=== PATIENT | female | born 1950 | race Caucasian/White ===

== ENCOUNTER 2025-05-27 13:01 | Inpatient (IN) | payer MEDICARE, OTHER ==
[~2025-05-27] VITALS: Ht 170.2 cm; Wt 79.8 kg
--- NOTE | 2025-05-27 13:24 | ED.PDOC ---
GI ASSESSMENT HPI Comments HPI: Poor Historian. 75-year-old male brought in by ambulance from home for evaluation of upper abdominal pain 1 hour prior to arrival associated nausea and vomiting nonbilious nonbloody. Patient has a normal bowel movement loose stool but no diarrhea. Denies any melena hematemesis or hematochezia.. Pain is constant nonradiating. Denies eating any unusual food. Past Medical History: Breast cancer, hyperlipidemia Past Surgical History: Partial mastectomy, hysterectomy, partial thyroidectomy. REVIEW OF SYSTEMS: CONSTITUTIONAL: Denies acute: fever, diaphoresis, chills, HEAD: Denies acute: headache, photophobia Eyes: Denies acute: Double vision, vision loss, eye pain, eye discharge. EARS: Denies acute: tinnitus, hearing loss, ear discharge, ear pain, THROAT: Denies acute: sore throat, swelling, difficulty swallowing , pain with swallowing, change in voice. NECK: Denies acute: neck pain, neck swelling, stiff neck. HEART: Denies acute : chest pain, palpitations, LUNGS: Denies acute: SOB, wheezing, cough, hemoptysis ABDOMEN: Denies acute: , diarrhea, melena , hematemesis, hematochezia SKIN: Denies acute: rash, redness, lesions, itchiness. EXTREMITIES: Denies acute: calf pain, numbness, tingling, weakness, denies pain in extremity. Denies acute: Low back pain. Neuro: Denies acute: focal neurological deficit, motor or sensory focal neurological deficit, tremors, seizure like activity, confusion, dizziness, change in mental status, loss of bowel or bladder function, cauda equina like symptoms. : Denies acute: dysuria, hematuria, flank pain, increase in urinary frequency. PSYCH: Denies acute: hallucination, suicidal ideation, homicidal ideation. FEMALE: Denies acute: abnormal vaginal bleeding, foul odor, unusual discharge. PHYSICAL EXAM: General: -----moderate---acute distress, awake and alert. Head: normocephalic, atraumatic. Neck: supple, trachea is midline, no swelling. Throat: Normal phonation. Eyes:, no erythema, no purulent discharge, no proptosis, no icterus. Heart: regular rate, regular rhythm, no significant murmur appreciated. Lungs: no apparent respiratory distress, Able to speak in full sentences. No wheezing, no rhonchi, no crackles. No stridors Clear to auscultation bilaterally. Abdomen: Right upper quadrant tender to palpation, non distended, soft, no guarding, no rebound, + bowel sounds. Neuro: Awake, Alert, oriented to name, self, situation, follows commands GCS=15. Speech is normal. Skin: no petechia, no purpura, no cyanosis, non-pale, not jaundice. Lower extremities: --no - Pitting edema no deformity, no focal swelling, no calf TTP. Makes eye contact. moves all four extremities. Face: no apparent facial droop. ED COURSE: DISCLAIMER: This medical document was created using an electronic medical record system with voice recognition software and computerized dictation system. Although this document has been carefully reviewed, there might still be some phonetic and typographical errors. Occasional wrong-word or "sound-alike" substitutions may have occurred due to the inherent limitations of voice recognition software. These areas are purely typographical due to imperfections of the software programs and do not reflect any compromise in the patient's medical care. Please read the chart carefully and recognize, using context, where these substitutions have occurred. Chief Complaint: Abdominal Pain Time Seen by MD: 13:05 Reviewed Notes: Allergies Allergies: Coded Allergies: Hydrocodone (Verified Allergy, Unknown, 05/27/25) Hydrocortisone (Verified Allergy, Unknown, 05/27/25) NSAIDs (Verified Allergy, Unknown, 05/27/25) Povidone Iodine (Verified Allergy, Unknown, 05/27/25) Sulfa Antibiotics (Verified Allergy, Unknown, 05/27/25) Home Meds Reported Medications Simvastatin (Simvastatin) 20 Mg Tab, 1 TAB PO 05/27/25 Information Source: Patient, Emergency Med Personnel Mode of Arrival: Ambulatory Was a procedure done? Was a procedure done?: No GI differential Dx Differential Diagnosis: Other (DDX include Diverticulitis, colitis, gastroenteritis, acute abdomen, SBO, enteritis, constipation, volvulus, appendicitis, Gallbladder disease, choledocolithiasis, ascending cholangitis, pancreatitis, intraAbdominal mass/neoplasm, hepatitis, UTI, pylonephritis, kidney stone, aneurysm, dissection, Inflammatory bowel disease, gastroparesis, ischemic bowel,,,,, ) X-Ray, Labs, Meds, VS Vital Signs Date Time Temp Pulse Resp B/P (MAP) Pulse Ox O2 Delivery O2 Flow Rate FiO2 05/27/25 15:04 74 17 96 Room Air* 0 21 05/27/25 14:56 129/61 05/27/25 14:54 97.7 58 16 129/61 (83) 98 97.7 05/27/25 13:10 97.9 64 20 129/67 100 97.9 Lab Test 05/27/25 15:20 05/27/25 14:11 Range/Units Troponin I High Sensitivity < 3 L < 3 L </=34 ng/L White Blood Count 11.8 H 4.4-10.8 10^3/uL Red Blood Count 4.46 4.0-5.20 10^6/uL Hemoglobin 14.0 12.2-16.2 g/dL Hematocrit 41.0 36.0-46.0 % Mean Corpuscular Volume 91.9 80.0-100.0 fL Mean Corpuscular Hemoglobin 31.3 28.0-32.0 pg Mean Corpuscular Hemoglobin Concent 34.1 32.0-36.0 g/dL Red Cell Distribution Width 13.0 11.8-14.3 % Platelet Count 169 140-450 10^3/uL Mean Platelet Volume 8.9 6.9-10.8 fL Neutrophils (%) (Auto) 88.1 H 37.0-80.0 % Lymphocytes (%) (Auto) 7.4 L 10.0-50.0 % Monocytes (%) (Auto) 4.2 0.0-12.0 % Eosinophils (%) (Auto) 0.0 0.0-7.0 % Basophils (%) (Auto) 0.3 0.0-2.0 % Neutrophils # (Auto) 10.4 H 1.6-8.6 10 ^3/uL Lymphocytes # (Auto) 0.9 0.4-5.4 10 ^3/uL Monocytes # (Auto) 0.5 0-1.3 10 ^3/uL Eosinophils # (Auto) 0 0-0.8 10 ^3/uL Basophils # (Auto) 0 0-0.2 10 ^3/uL Nucleated Red Blood Cells 0.0 % Prothrombin Time 10.9 9.3-11.8 sec Prothrombin Time INR 1.03 0.9-1.15 Activated Partial Thromboplast Time 24.8 24.5-34.5 SEC Sodium Level 141 136-145 mmol/L Potassium Level 3.8 3.5-5.1 mmol/L Chloride Level 104 98-107 mmol/L Carbon Dioxide Level 23 20-31 mmol/L Anion Gap 14 5-15 Blood Urea Nitrogen 22 9-23 mg/dL Creatinine 0.63 0.550-1.02 mg/dL Glomerular Filtration Rate Calc 93 >90 mL/min BUN/Creatinine Ratio 34.9 H 10.0-20.0 Serum Glucose 166 H 74-106 mg/dL Lactic Acid Level 3.7 *H 0.4-2.0 mmol/L Calcium Level 9.4 8.7-10.4 mg/dL Total Bilirubin 0.7 0.2-1.0 mg/dL Aspartate Amino Transferase (AST) 29 13-40 U/L Alanine Aminotransferase (ALT) 26 7-40 U/L Alkaline Phosphatase 77 46-116 U/L Total Protein 6.9 5.7-8.2 g/dL Albumin 4.5 3.2-4.8 g/dL Lipase 44 12-53 U/L Current Medications Medications (Trade) Dose Ordered Sig/Preet Route Start Time Stop Time Status Last Admin Fentanyl Citrate 100 mcg ONCE ONCE IV 05/27/25 14:15 05/27/25 14:16 DC 05/27/25 14:56 Ondansetron HCl (Zofran) 4 mg ONCE ONCE IV 05/27/25 15:00 05/27/25 15:01 DC 05/27/25 14:53 [place] [id number] Ph: [phone] DIAGNOSTIC IMAGING Diagnostic Imaging Report : [id number] Signed PATIENT: ALESSANDRO PACHECO ACCT: [id number] UNIT: [id number] : 1950 LOC: ER ROOM / BED: / AGE / SEX: 75 / F ADM STATUS: REG ER SERVICE 1310 ORDERING PHYSICIAN: LUIS ALFREDO DAILEY DO PROCEDURE(s): ABPL - CT AB PEL WO CON-NO ORAL OR IV REASON: RUQ pain ORDER NUMBER(s): [id number], ACCESSION NUMBER(s): [id number] EXAM DESCRIPTION: CT CT AB PEL WO CON-NO ORAL OR IV CLINICAL HISTORY: RUQ pain COMPARISON: None TECHNIQUE: CT abdomen and pelvis without IV contrast was performed. Coronal and sagittal MPR images were generated.CTDI/ DLP = 11.11 / 11.11 Dose reduction technique with one or more of the following methods was performed: Automated exposure control, adjustment of the mA and/or kV according to patient size, use of iterative reconstruction technique FINDINGS: Lower chest: Aortic valve leaflet calcifications. Liver: Homogenous in attenuation. . Biliary: No calcified gallstones. No biliary ductal dilatation. Pancreas: No fat stranding or focal lesion. Spleen: Normal in size.. Adrenal glands: No nodularity. No nodularity Kidneys: No nephrolithiasis. No hydroureteronephrosis. . Bladder: No bladder wall thickening. Reproductive organs: Status post hysterectomy. Bowel: There are multiple mildly dilated loops of small bowel in the lower abdomen with multiple apparent transition points. The large bowel demonstrates normal caliber. Colonic diverticulosis without evidence of diverticulitis. Normal appendix.. Small hiatal hernia. Peritoneum: No free fluid. No free air. Vessels: Normal caliber abdominal aorta. Mild to moderate atherosclerotic calcifications.. Lymph nodes: No suspicious lymph nodes. Soft tissues: Asymmetric soft tissue nodularity of the left breast with calcifications and clips. . Osseous structures: No acute fracture or subluxation. No suspicious osseous le sions. Degenerative changes of the visualized thoracolumbar spine. IMPRESSION: 1. Multiple mildly dilated loops of small bowel in the lower abdomen with multiple apparent transition points. These findings are suspicious for multi- focal closed-loop small bowel obstruction. Recommend surgical consultation. 2. Asymmetric soft tissue nodularity in the left breast with calcifications and metallic clips. Recommend correlation with mammography Critical findings discussed with Dr. Luis Alfredo Dailey by Dr. Naylor via phone on 05/27/2025 02:00 PM. ATED BY: TYLER NAYLOR MD DICTATED DATE/TIME: 05/27/251400 SIGNED BY: TYLER NAYLOR MD SIGNED DATE/TIME: 05/27/251400 CC: Time of 1ST Reevaluation: 00:00 Reevaluation 1ST: N/A Patient Education/Counseling: Diagnosis, Treatment Family Education/Counseling: Other Comments MDM: patient presented with the above HPI.---abdominal pain---workup was initiated. patient was found with the above mentioned diagnosis. the following medications were ordered: please refer to order lists of meds and tests obtained by myself Dr. Dailey. Patient ED course and VS have been stabilized. Patient has been reassessed in the ED and remained in a stable condition. Pertinent incidental findings were discussed with the patient and/or family. Patient/family voices understanding and is agreeable with plan. Patient has been observed in the ED adequate length of time to insure improvement/stability. Escalation of care considered: Consideration of escalation to observation or admission General surgery was consult. Patient was ADMITTED to the medicine team for further evaluation and treatment of their presentation. All the reports of any imaging studies that were ordered by myself were reviewed by myself. Departure 1 Departure Time of Disposition: 14:05 Impression: Primary Impression: SBO (small bowel obstruction) Additional Impression: Elevated lactic acid level Disposition: ADMITTED INPATIENT Admit to: Tele Condition: Guarded Discharged With: Self Critical Care Note Critical Care Time?: Yes (55 min-critical care time only) Heart Score Heart Score: Heart Score Response (Comments) Value History Slightly Suspicious 0 EKG Normal 0 Age >65 2 Risk Factors 1 or 2 risk factors 1 Troponin Normal limit 0 Total 3 I personally scribed for LUIS ALFREDO DAILEY DO ([email or web address]) on 05/27/25 at 13:53. Electronically submitted by Gracie Chappell ([email or web address]). I personally scribed for LUIS ALFREDO DAILEY DO ([email or web address]) on 05/27/25 at 14:39. Electronically submitted by Gracie Chappell ([email or web address]). LUIS ALFREDO DAILEY DO May 27, 2025 13:24
--- NOTE | 2025-05-27 14:04 | DVH ---
EXAM DESCRIPTION: CT CT AB PEL WO CON-NO ORAL OR IV CLINICAL HISTORY: RUQ pain COMPARISON: None TECHNIQUE: CT abdomen and pelvis without IV contrast was performed. Coronal and sagittal MPR images were generat ed.CTDI/ DLP = 11.11 / 11.11 Dose reduction technique with one or more of the following methods was performed: Automated exposure control, adjustment of the mA and/or kV according to patient size, use of iterative reconstruction te chnique FINDINGS: Lower chest: Aortic valve leaflet calcifications. Liver: Homogenous in attenuation. . Biliary: No calcified gallstones. No biliary ductal dilatation. Pancreas: No fat stranding or focal lesion. Spleen: Normal in size.. Adrenal glands: No nodularity. No nodularity Kidneys: No nephrolithiasis. No hydroureteronephrosis. . Bladder: No bladder wall thickening. Reproductive organs: Status post hysterectomy. Bowel: There are multiple mildly dilated loops of small bowel in the lower abdomen with multiple appa rent transition points. The large bowel demonstrates normal caliber. Colonic diverticulosis without e vidence of diverticulitis. Normal appendix.. Small hiatal hernia. Peritoneum: No free fluid. No free air. Vessels: Normal caliber abdominal aorta. Mild to moderate atherosclerotic calcifications.. Lymph nodes: No suspicious lymph nodes. Soft tissues: Asymmetric soft tissue nodularity of the left breast with calcifications and clips. . Osseous structures: No acute fracture or subluxation. No suspicious osseous lesions. Degenerative c hanges of the visualized thoracolumbar spine. IMPRESSION: 1. Multiple mildly dilated loops of small bowel in the lower abdomen with multiple apparent transitio n points. These findings are suspicious for multi-focal closed-loop small bowel obstruction. Recomm end surgical consultation. 2. Asymmetric soft tissue nodularity in the left breast with calcifications and metallic clips. Recom mend correlation with mammography Critical findings discussed with Dr. Luis Alfredo Boss by Dr. Finley via phone on 05/27/2025 02:00 PM.
[2025-05-27 14:29] LABS: Hematocrit 41.0 % (36.0-46.0); Hemoglobin 14.0 g/dL (12.2-16.2); Mean Corpuscular Hemoglobin 31.3 pg (28.0-32.0); Mean Corpuscular Volume 91.9 fL (80.0-100.0); Nucleated Red Blood Cells % 0.0 %
[2025-05-27 14:40] LABS: Alanine Aminotransferase 26 U/L (7-40); Albumin 4.5 g/dL (3.2-4.8); Alkaline Phosphatase 77 U/L (46-116); Anion Gap 14 (5-15); BUN/Creatinine Ratio 34.9 (10.0-20.0); Bilirubin, Total 0.7 mg/dL (0.2-1.0); Blood Urea Nitrogen 22 mg/dL (9-23); Calcium 9.4 mg/dL (8.7-10.4); Carbon Dioxide 23 mmol/L (20-31); Chloride 104 mmol/L (98-107); Glucose 166 mg/dL (74-106); Lipase 44 U/L (12-53); Potassium 3.8 mmol/L (3.5-5.1); Sodium 141 mmol/L (136-145); Total Protein 6.9 g/dL (5.7-8.2)
[2025-05-27 14:44] LABS: Lactic Acid w/Reflex 3.7 mmol/L (0.4-2.0)
[2025-05-27] MEDS: ONDANSETRON HCL 4 MG/2 ML VIAL IV ONE (14:53)
[2025-05-27] MEDS: fentaNYL CITRATE 100 MCG/2 ML VL IV ONE (14:56)
[2025-05-27] MEDS: ONDANSETRON HCL 4 MG/2 ML VIAL ONE (15:02)
[2025-05-27 15:04] VITALS: PULSE 74; RESP 17; O2SAT 96
[2025-05-27 16:06] VITALS: PULSE 60; RESP 17; O2SAT 95
--- NOTE | 2025-05-27 16:08 | DVH ---
CHEST RADIOGRAPH Indication: surgery Technique: Single frontal view of the chest was obtained COMPARISON: None FINDINGS: Lines and Tubes: None Lungs: Clear Pleura: No effusion. No pneumothorax. Cardiomediastinal contours: Unremarkable Bones: Unremarkable IMPRESSION: No acute disease.
--- NOTE | 2025-05-27 16:10 | DVHHP2 ---
History of Present Illness Reason for Visit: Abdominal pain with nausea and vomiting History of Present Illness Sejal Chin is a 75-year-old female with past medical history of breast cancer, partial mastectomy, hyperlipidemia, hysterectomy, duodenal ulcer, and partial thyroidectomy who presents to the ED with abdominal pain with nausea and vomiting that started yesterday. Patient reports that the cramping started yesterday states that the pain is currently 7/10 cramping and constant. She reports that there are no triggering or alleviating factors. Patient's Adam at the bedside. Patient reports that she had a normal bowel movement yesterday with brown stool color. Denies any hematochezia, melena, or hematemesis. Patient also reports that she is compliant with her medications. She reports that she does not use any DMEs. Patient denies any recent trauma or injury, recent sick contacts, recent travels, recent ingestion of spoiled food, chest pain, shortness of breath, fever, chills, lightheadedness, weakness, dizziness, diarrhea, or urinary symptoms. Patient reports that she has never had morphine or Dilaudid for pain. Cardiovascular: hyperipidemia Past Medical History Breast cancer Duodenal ulcer Past Surgical History: Hysterectomy, Other (Partial mastectomy and partial thyroidectomy) Family History: Cancer, DM, Hypertension, Other (Dad with colon cancer, diab etes, and heart disease. Mom with scoliosis and hypertension.) Smoke: No ALCOHOL: none Drugs: None Lives: with Family Domestic Violence: Neg Review of Systems Gastrointestinal: Nausea, Vomiting, Abdominal Pain Allergies: Coded Allergies: Hydrocodone (Verified Allergy, Unknown, 05/27/25) Hydrocortisone (Verified Allergy, Unknown, 05/27/25) NSAIDs (Verified Allergy, Unknown, 05/27/25) Povidone Iodine (Verified Allergy, Unknown, 05/27/25) Sulfa Antibiotics (Verified Allergy, Unknown, 05/27/25) Exam Vital Signs Vital Signs Date Time Temp Pulse Resp B/P (MAP) Pulse Ox O2 Delivery O2 Flow Rate FiO2 05/27/25 15:04 74 17 96 Room Air* 0 21 05/27/25 14:56 129/61 05/27/25 14:54 97.7 97.7 General Appearance: Alert, Oriented X3, Cooperative, No acute distress HEENT: Atraumatic, PERRLA, EOMI, Mucous membr. moist/pink Respiratory: Clear to auscultation, Normal air movement Cardiovascular: Normal S1, Normal S2 Abdominal: Soft Extremities: No edema, Normal pulses Skin: No significant lesion Neuro: Normal speech, Normal tone, Sensation intact Psych/Mental Status: Mental status NL, Mood NL Labs/Xrays Labs Test 05/27/25 15:20 05/27/25 14:11 Range/Units Troponin I High Sensitivity < 3 L </=34 ng/L White Blood Count 11.8 H 4.4-10.8 10^3/uL Red Blood Count 4.46 4.0-5.20 10^6/uL Hemoglobin 14.0 12.2-16.2 g/dL Hematocrit 41.0 36.0-46.0 % Mean Corpuscular Volume 91.9 80.0-100.0 fL Mean Corpuscular Hemoglobin 31.3 28.0-32.0 pg Mean Corpuscular Hemoglobin Concent 34.1 32.0-36.0 g/dL Red Cell Distribution Width 13.0 11.8-14.3 % Platelet Count 169 140-450 10^3/uL Mean Platelet Volume 8.9 6.9-10.8 fL Neutrophils (%) (Auto) 88.1 H 37.0-80.0 % Lymphocytes (%) (Auto) 7.4 L 10.0-50.0 % Monocytes (%) (Auto) 4.2 0.0-12.0 % Eosinophils (%) (Auto) 0.0 0.0-7.0 % Basophils (%) (Auto) 0.3 0.0-2.0 % Neutrophils # (Auto) 10.4 H 1.6-8.6 10 ^3/uL Lymphocytes # (Auto) 0.9 0.4-5.4 10 ^3/uL Monocytes # (Auto) 0.5 0-1.3 10 ^3/uL Eosinophils # (Auto) 0 0-0.8 10 ^3/uL Basophils # (Auto) 0 0-0.2 10 ^3/uL Nucleated Red Blood Cells 0.0 % Sodium Level 141 136-145 mmol/L Potassium Level 3.8 3.5-5.1 mmol/L Chloride Level 104 98-107 mmol/L Carbon Dioxide Level 23 20-31 mmol/L Anion Gap 14 5-15 Blood Urea Nitrogen 22 9-23 mg/dL Creatinine 0.63 0.550-1.02 mg/dL Glomerular Filtration Rate Calc 93 >90 mL/min BUN/Creatinine Ratio 34.9 H 10.0-20.0 Serum Glucose 166 H 74-106 mg/dL Lactic Acid Level 3.7 *H 0.4-2.0 mmol/L Calcium Level 9.4 8.7-10.4 mg/dL Total Bilirubin 0.7 0.2-1.0 mg/dL Aspartate Amino Transferase (AST) 29 13-40 U/L Alanine Aminotransferase (ALT) 26 7-40 U/L Alkaline Phosphatase 77 46-116 U/L Total Protein 6.9 5.7-8.2 g/dL Albumin 4.5 3.2-4.8 g/dL Lipase 44 12-53 U/L EXAM DESCRIPTION: CT CT AB PEL WO CON-NO ORAL OR IV CLINICAL HISTORY: RUQ pain COMPARISON: None TECHNIQUE: CT abdomen and pelvis without IV contrast was performed. Coronal and sagittal MPR images were generated.CTDI/ DLP = 11.11 / 11.11 Dose reduction technique with one or more of the following methods was performed: Automated exposure control, adjustment of the mA and/or kV according to patient size, use of iterative reconstruction technique FINDINGS: Lower chest: Aortic valve leaflet calcifications. Liver: Homogenous in attenuation. . Biliary: No calcified gallstones. No biliary ductal dilatation. Pancreas: No fat stranding or focal lesion. Spleen: Normal in size.. Adrenal glands: No nodularity. No nodularity Kidneys: No nephrolithiasis. No hydroureteronephrosis. . Bladder: No bladder wall thickening. Reproductive organs: Status post hysterectomy. Bowel: There are multiple mildly dilated loops of small bowel in the lower abdomen with multiple apparent transition points. The large bowel demonstrates normal caliber. Colonic diverticulosis without evidence of diverticulitis. Normal appendix.. Small hiatal hernia. Peritoneum: No free fluid. No free air. Vessels: Normal caliber abdominal aorta. Mild to moderate atherosclerotic calcifications.. Lymph nodes: No suspicious lymph nodes. Soft tissues: Asymmetric soft tissue nodularity of the left breast with calcifications and clips. . Osseous structures: No acute fracture or subluxation. No suspicious osseous lesions. Degenerative changes of the visualized thoracolumbar spine. IMPRESSION: 1. Multiple mildly dilated loops of small bowel in the lower abdomen with multiple apparent transition points. These findings are suspicious for multi- focal closed-loop small bowel obstruction. Recommend surgical consultation. 2. Asymmetric soft tissue nodularity in the left breast with calcifications and metallic clips. Recommend correlation with mammography CHEST RADIOGRAPH Indication: surgery Technique: Single frontal view of the chest was obtained COMPARISON: None FINDINGS: Lines and Tubes: None Lungs: Clear Pleura: No effusion. No pneumothorax. Cardiomediastinal contours: Unremarkable Bones: Unremarkable IMPRESSION: No acute disease. SEPSIS Sepsis Screen Date sepsis recognized/suspect: May 27, 2025 Time Sepsis recognized/suspect: 1313 Recent Procedure: No On Antibiotic Therapy: No Respiratory Rate >20: No Heart Rate >90: No Temp<36 C (96.8 F) or >38.3 C: No SBP <90 or MAP <65 mmHG: No New Acute Mental Status Change: No Is the patient on CPAP, BIPAP,: No Physician Orders Planning Consultant (05/27/25 ) Urinalysis (05/27/25 13:10) Electrocardigram (05/27/25 13:10) Ct Ab Pel Wo Con-No Oral Or Iv (05/27/25 13:10) Troponin-I Hs (05/27/25 16:10) * Surgical Consult (05/27/25 ) Obtain Consent For: (05/27/25 15:18) Ng To Lcs (05/27/25 15:28) Chest Xray 1 View (05/27/25 15:34) Electrocardigram (05/27/25 15:34) PTPTT (05/27/25 15:51) Prothrombin Time W/ Inr (05/27/25 15:51) Vital Signs Date Time Temp Pulse Resp B/P (MAP) Pulse Ox O2 Delivery O2 Flow Rate FiO2 05/27/25 15:04 74 17 96 Room Air* 0 21 05/27/25 14:56 129/61 05/27/25 14:54 97.7 58 16 129/61 (83) 98 97.7 05/27/25 13:10 97.9 64 20 129/67 100 97.9 Laboratory Tests Test 05/27/25 14:11 Lactic Acid Level 3.7 mmol/L (0.4-2.0) *H White Blood Count 11.8 10^3/uL (4.4-10.8) H Medications Medications Dose Ordered Sig/Preet Route Start Time Stop Time Status Last Admin Dose Admin Fentanyl Citrate 100 mcg ONCE ONCE IV 05/27/25 14:15 05/27/25 14:16 DC 05/27/25 14:56 100 MCG Ondansetron HCl 4 mg ONCE ONCE IV 05/27/25 15:00 05/27/25 15:01 DC 05/27/25 14:53 4 MG Assessment/Plan Assessment/Plan Assessment Intractable abdominal pain likely due to SBO Leukocytosis likely due to SBO Lactic acidosis likely sepsis Multiple mildly dilated loops of small bowel in the lower abdomen with multiple apparent transition points likely due to SBO Asymmetric soft tissue nodularity in the left breast with calcifications and metallic clips Hyperglycemia History of breast cancer History of partial mastectomy History of hyperlipidemia History of hysterectomy History of partial thyroidectomy History of duodenal ulcer Plan Admit to med surge Antiemetics Pain management IV antibiotics-Zosyn Lactic noted Troponin noted negative x2 Hemoglobin A1c ISS and Accu-Cheks PT/INR Chest x-ray NG tube to low continuous suction CT abdomen and pelvis UA Lipase Blood cultures UA Urine culture NPO IV fluids Home medications reconciled DVT prophylaxis-SCDs PUD prophylaxis-PPIs Discussed plan of care with patient, patient's spouse, and nurse General surgery [place] [id number] Preventive counseling healthy eating habits, physical activity, and regular checkups Rounding hospitalist to consider patient for mammography outpatient Plan discussed with: Patient Date of Service: May 27, 2025 Billing Provider: NESTOR FERRARA Common Visit Codes: [id number] INP/OBS CARE (HIGH) Secondary Visit Codes: [id number] COUNSELING IND NESTOR FERRARA May 27, 2025 16:10
[2025-05-27] MEDS ORDERED: ACETAMINOPHEN 325 MG TAB PO PRN (16:15)
[2025-05-27] MEDS ORDERED: ONDANSETRON HCL 4 MG/2 ML VIAL IV PRN ×2 (16:15→19:30)
[2025-05-27] MEDS: SODIUM CHLORIDE 0.9% 1,900 ML IV ONE (16:15)
[2025-05-27] MEDS ORDERED: HYDROmorphone HCL 2 MG/ML VL/or syr ONE (16:24)
[2025-05-27] MEDS ORDERED: fentaNYL CITRATE 100 MCG/2 ML VL ONE (16:24)
[2025-05-27] MEDS ORDERED: MIDAZOLAM HCL 2MG/2ML 2ml VIAL (1mg/ml) ONE (16:24)
[2025-05-27 16:26] LABS: INR 1.03 (0.9-1.15); Partial Thromboplastin Time 24.8 SEC (24.5-34.5); Prothrombin Time 10.9 sec (9.3-11.8)
[2025-05-27] MEDS ORDERED: SIMV20TA20 PO (17:06)
--- NOTE | 2025-05-27 17:30 | DVH ---
CHEST RADIOGRAPH Indication: POST NG INSERTION Technique: XY CHEST PORTABLE Comparison: 05/27/2020 FINDINGS: The nasogastric tube projects towards the stomach. The cardiac silhouette is unremarkable. The lungs demonstrate no pulmonary airspace consolidation. Th e pulmonary vasculature is unremarkable. There is no pleural effusion. There is no pneumothorax. IMPRESSION: No pulmonary airspace consolidation.
[2025-05-27] MEDS ORDERED: ONDANSETRON HCL 4 MG/2 ML VIAL ONE (18:05)
--- NOTE | 2025-05-27 18:08 | DVHINCON2 ---
Consultation - Surgical Date Seen: May 27, 2025 Referring Physician Reason for Consultation Possible closed loop small bowel obstruction History of Present Illness History of Present Illness Mrs. Chin is a 75-year-old female who presented to the emergency department with sudden onset mid abdominal pain, associated with nausea and vomiting. Patient was feeling fine this morning and was going about her day when all of a sudden the pain hit her at home and has not subsided. She has never had this type of pain before. States that she had a bowel movement this morning and it was liquidy. Denies fevers, chills, changes in urinary or stooling habits. States that she has not passed gas since the pain started. Past Medical/Surgical History Past Medical/Surgical History PMH thyroid goiter, breast cancer on the left PSH hysterectomy open, left breast lumpectomy, partial thyroidectomy Family and Social History Family and Social History Family history noncontributory ETOH/T Ob/drugs denies Allergies and medications Allergies: Coded Allergies: Hydrocodone (Verified Allergy, Unknown, 05/27/25) Hydrocortisone (Verified Allergy, Unknown, 05/27/25) NSAIDs (Verified Allergy, Unknown, 05/27/25) Povidone Iodine (Verified Allergy, Unknown, 05/27/25) Sulfa Antibiotics (Verified Allergy, Unknown, 05/27/25) Home Meds Reported Medications Simvastatin (Simvastatin) 20 Mg Tab, 1 TAB PO 05/27/25 Review of systems Review of Systems: Deferred Examination Vital signs Vital Signs Date Time Temp Pulse Resp B/P (MAP) Pulse Ox O2 Delivery O2 Flow Rate FiO2 05/27/25 16:06 60 17 148/60 (89) 95 05/27/25 15:04 Room Air* 0 21 05/27/25 14:54 97.7 97.7 Medications Current Medications Medications (Trade) Dose Ordered Sig/Preet Route PRN Reason Start Time Stop Time Status Last Admin Sodium Chloride 1,000 ml @ 120 mls/hr Q8H20M IV 05/27/25 16:15 Ondansetron HCl (Zofran) 4 mg Q4HP PRN IV NAUSEA / VOMITING 05/27/25 16:15 Acetaminophen (Tylenol Tablet) 650 mg Q6HP PRN PO PAIN SCALE 1-3 OR TEMP>100.4 05/27/25 16:15 Piperacillin Sod/ Tazobactam Sod 100 ml @ 25 mls/hr Q8HR IV 05/27/25 16:15 Atorvastatin Calcium (Lipitor) 10 mg HS PO 05/27/25 22:00 Laboratory Labs Test 05/27/25 16:45 05/27/25 15:20 05/27/25 14:11 Range/Units Lactic Acid Level 2.5 *H 0.4-2.0 mmol/L Troponin I High Sensitivity < 3 L </=34 ng/L White Blood Count 11.8 H 4.4-10.8 10^3/uL Red Blood Count 4.46 4.0-5.20 10^6/uL Hemoglobin 14.0 12.2-16.2 g/dL Hematocrit 41.0 36.0-46.0 % Mean Corpuscular Volume 91.9 80.0-100.0 fL Mean Corpuscular Hemoglobin 31.3 28.0-32.0 pg Mean Corpuscular Hemoglobin Concent 34.1 32.0-36.0 g/dL Red Cell Distribution Width 13.0 11.8-14.3 % Platelet Count 169 140-450 10^3/uL Mean Platelet Volume 8.9 6.9-10.8 fL Neutrophils (%) (Auto) 88.1 H 37.0-80.0 % Lymphocytes (%) (Auto) 7.4 L 10.0-50.0 % Monocytes (%) (Auto) 4.2 0.0-12.0 % Eosinophils (%) (Auto) 0.0 0.0-7.0 % Basophils (%) (Auto) 0.3 0.0-2.0 % Neutrophils # (Auto) 10.4 H 1.6-8.6 10 ^3/uL Lymphocytes # (Auto) 0.9 0.4-5.4 10 ^3/uL Monocytes # (Auto) 0.5 0-1.3 10 ^3/uL Eosinophils # (Auto) 0 0-0.8 10 ^3/uL Basophils # (Auto) 0 0-0.2 10 ^3/uL Nucleated Red Blood Cells 0.0 % Prothrombin Time 10.9 9.3-11.8 sec Prothrombin Time INR 1.03 0.9-1.15 Activated Partial Thromboplast Time 24.8 24.5-34.5 SEC Sodium Level 141 136-145 mmol/L Potassium Level 3.8 3.5-5.1 mmol/L Chloride Level 104 98-107 mmol/L Carbon Dioxide Level 23 20-31 mmol/L Anion Gap 14 5-15 Blood Urea Nitrogen 22 9-23 mg/dL Creatinine 0.63 0.550-1.02 mg/dL Glomerular Filtration Rate Calc 93 >90 mL/min BUN/Creatinine Ratio 34.9 H 10.0-20.0 Serum Glucose 166 H 74-106 mg/dL Calcium Level 9.4 8.7-10.4 mg/dL Total Bilirubin 0.7 0.2-1.0 mg/dL Aspartate Amino Transferase (AST) 29 13-40 U/L Alanine Aminotransferase (ALT) 26 7-40 U/L Alkaline Phosphatase 77 46-116 U/L Total Protein 6.9 5.7-8.2 g/dL Albumin 4.5 3.2-4.8 g/dL Lipase 44 12-53 U/L Examination: GENERAL:Normal, ABDOMEN:Normal (Nondistended, soft, depressible, mild generalized abdominal tenderness, no rebound, no guarding) Problem List/Assessment/Plan Problems: (1) SBO (small bowel obstruction) Assessment and Plan Mrs. Chin is a 75-year-old female who presented with the acute onset abdominal pain. CT scan shows swirling of small bowel loops in the right lower quadrant and multiple areas of decompressed small bowel loops, which she is concerning for closed loop obstruction and possible small bowel compromise due to the swirling. She also presented with a lactate of 3.7. Due to the CT findings high lactate and generalized abdominal pain I think patient will benefit from a diagnostic laparoscopy, to be able to see if there is any compromise or threat and small bowel. I offered diagnostic laparoscopy copy, possible exploratory laparotomy, possible bowel resection, and all indicated procedures, to and . They both agree with surgical plan. 1. On-call to OR for the above procedure 2. NPO 3. NG tube to low intermittent suctioned Plan discussed with Plan discussed with: Patient, Spouse Visit Coding Surgery Date of Service if different f: May 27, 2025 Billing Provider: KRISHNA PACKER MD Surgery Visit Codes: [id number] - INP CONSULT <110 MIN KRISHNA PACKER MD May 27, 2025 18:08
[2025-05-27] MEDS: BUPIVACAINE 0.25% INJ 50ML VIAL ONE (18:33)
[2025-05-27] MEDS ORDERED: MIDAZOLAM HCL 2MG/2ML 2ml VIAL (1mg/ml) IV PRN (19:30)
[2025-05-27] MEDS ORDERED: hydrALAZINE HCL 20 MG/ML VL IV PRN (19:30)
[2025-05-27] MEDS ORDERED: MORPHINE SULFATE 4 MG/ML SYR/VIAL IV PRN (19:30)
[2025-05-27] MEDS ORDERED: SUGAMMADEX 200mg/2ml Vial (100MG/ML) IV ONE (20:25)
[2025-05-27 21:05] VITALS: PULSE 90; RESP 16; O2SAT 95
--- NOTE | 2025-05-27 21:14 | DVHOP2 ---
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 These include but are not limited to complications of anesthesia, postoperative infection, incomplete relief of symptoms, recurrence of symptoms, damage to blood vessels, nerves and tendons, deep venous thrombosis, pulmonary embolism and possible need for repeat surgery in the future. 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 Hemorrhagic and congested segments of jejunum with proximal dilation and distal decompression. Omental adhesions to anterior abdominal wall. Many adhesive bands between cecum and lateral abdominal wall. Indications for Surgery: Closed loop small bowel obstruction seen on CT scan. Name of Procedure Performed Diagnostic laparoscopy converted to exploratory laparotomy, lysis of adhesions, appendectomy Procedure Details Procedure Details: Upon arrival to the operating room the patient was transferred to the operating table and placed in the supine position with arms extended. General endotracheal anesthesia was induced. Time-out was observed. Patient was prepped and draped in the standard sterile surgical fashion with chlorhexidine. I then proceeded to make a infraumbilical curvilinear incision and dissected down to fascia once at the fascia I grasped the umbilical stalk with a Camilla clamp and walked it down to its base, once at the base treat to the peritoneal cavity utilizing Cesilia technique. I then introduced the Rico cannula and insufflated the peritoneal cavity to 15 mmHg with toleration. I then inserted the camera and immediately noted omental adhesions to the anterior abdominal wall. I then placed 2 additional working ports under direct vision, 5 mm in si ze at the suprapubic area and at the left lower quadrant. Patient was then placed in the Trendelenburg position right side up, attention was then turned to the right lower quadrant. Here I noted dilated, hemorrhagic, and congested small bowel loops and some decompressed loops. I then proceeded to identified the cecum and the terminal ileum. I then started tracing the terminal ileum and as I made my way proximal I encountered the hemorrhagic congestive loops of small bowel. They appeared to be twisted around its mesentery. The small bowel loops were untwisted, but I then noted that there were some adhesions in the right lower quadrant. At this point was when I noted that the appendix was adhesed tightly to the right lateral pelvic wall and this caused an internal hernia with a small-bowel in it. I then proceeded to take down the appendix adhesions to the abdominal wall and immediately the small bowel became free. At this point I attempted to run the entire small bowel from terminal ileum to ligament of Treitz. As I did this I still felt that there was something else holding the small bowel into the retroperitoneum of the right lower quadrant, and I was not able to decipher what it was. At this point I decided to convert to a open surgery. I then extended the infraumbilical incision, down to the suprapubic area. I dissected down to fascia and I carefully incised the fascia the length of the incision and was able to gain access to the peritoneal cavity. I then was able to fully exteriorize the small bowel. The congested loops of bowel were completely free and out of the peritoneal cavity. At this point the loops of small bowel were regaining their normal appearance, and they were peristalsing, so I decided not to perform a small-bowel resection. I then proceeded to run the entire small bowel from ligament of Treitz to terminal ileum no further adhesive bands or other pathology noted. Given that the appendix was the cause of the issue, I decided to perform an appendectomy. I made a mesenteric rent at the base of the appendix and ligated the base with 2, 0 silk ties. I then placed 1 0 silk tie distal about half a cm. I then transected the appendix. I then transected the mesoappendix with ligature energy device. Appendix was passed off for pathology. This concluded the intraperitoneal portion of the surgery. I then closed the fascia with running #1 Loop PDS x2, tied at the center. Hemostasis stasis of the subcu was achieved with cautery. All counts complete and correct. Skin was closed with angelique at all sites. Marcaine 0.25% was used as local anesthetic. All sites dressed with a 4 x 4 gauze and Tegaderm. Patient tolerated the procedure well and was transferred to PACU in stable condition. Specimen: Appendix Condition Stable Disposition Still a Patient CADEN PACKER MD May 27, 2025 21:14
[2025-05-27 21:15] VITALS: PULSE 84; RESP 12; O2SAT 96
[2025-05-27] MEDS: HYDROmorphone HCL 2 MG/ML VL/or syr ONE (21:28)
[2025-05-27] MEDS: HYDROmorphone HCL 2 MG/ML VL/or syr IV PRN (21:28)
[2025-05-27] MEDS: ATORVASTATIN 20 MG TAB PO SCH (22:00)
[2025-05-27] MEDS ORDERED: HYDROmorphone HCL 2 MG/ML VL/or syr IV PRN (22:15)
[2025-05-27 22:24] VITALS: BP 137/67; PULSE 92; RESP 17; RESP 94; TEMP 98.3; O2SAT 94
[2025-05-27] MEDS: SODIUM CHLORIDE 0.9% 1,000 ML IV SCH (22:54)
[2025-05-27] MEDS: PIPERACILLIN-TAZOB 3.375GM 100 ML IV SCH (22:57)
[2025-05-27 23:06] VITALS: BP 137/67; PULSE 87; RESP 17; TEMP 98.3; O2SAT 94
--- NOTE | 2025-05-27 23:07 | DVH ---
CHEST RADIOGRAPH Indication: CONFIRM REPLACED NGT. Technique: Single frontal view of the chest was obtained COMPARISON: XY CHEST PORTABLE on DOS: 05/27/25, XY CHEST XRAY 1 VIEW on DOS: 05/27/25 FINDINGS: Lines and Tubes: Enteric catheter courses below the level of the diaphragm and terminates beyond the inferior margin of the image, presumably within the gastric lumen. Lungs: Mild diffuse increased prominence of the pulmonary vasculature and mild bilateral perihilar an d bibasilar pulmonary airspace disease. Pleura: No effusion. No pneumothorax. Cardiomediastinal contours: Unremarkable Bones: Unremarkable IMPRESSION: 1. Enteric catheter courses below the level of the diaphragm and terminates beyond the inferior alicia n of the image, presumably within the gastric lumen. 2. Mild diffuse increased prominence of the pulmonary vasculature and mild Bilateral perihilar Bibasi lar pulmonary airspace disease.
[2025-05-28] VITALS (8 sets, daily range): BP systolic 115–155; BP diastolic 37–75; PULSE 66–92; RESP 16–18; TEMP 97.3–98.4; O2SAT 93–97
[2025-05-28 07:34] LABS: Hematocrit 41.1 % (36.0-46.0); Hemoglobin 14.1 g/dL (12.2-16.2); Mean Corpuscular Hemoglobin 31.7 pg (28.0-32.0); Mean Corpuscular Volume 92.7 fL (80.0-100.0); Nucleated Red Blood Cells % 0.1 %
[2025-05-28 07:41] LABS: Alanine Aminotransferase 21 U/L (7-40); Alkaline Phosphatase 62 U/L (46-116); Anion Gap 10 (5-15); BUN/Creatinine Ratio 16.7 (10.0-20.0); Blood Urea Nitrogen 10 mg/dL (9-23); Calcium 8.9 mg/dL (8.7-10.4); Carbon Dioxide 28 mmol/L (20-31); Chloride 103 mmol/L (98-107); Potassium 4.6 mmol/L (3.5-5.1); Sodium 141 mmol/L (136-145); Total Protein 6.6 g/dL (5.7-8.2)
[2025-05-28 07:42] LABS: Albumin 4.2 g/dL (3.2-4.8); Bilirubin, Total 0.7 mg/dL (0.2-1.0); Glucose 146 mg/dL (74-106)
[2025-05-28] MEDS ORDERED: MORPHINE SULFATE 4 MG/ML SYR/VIAL IV PRN (13:30)
--- NOTE | 2025-05-28 13:31 | DVHPN2 ---
Reviewed: Care Plan, H&P, Labs, Medications, Previous Orders, Radiology Changes from previous H/P or p: No Changes Gastrointestinal: Nausea, Vomiting, Abdominal Pain Objective Vitals Vital Signs Date Time Temp Pulse Resp B/P (MAP) Pulse Ox O2 Delivery O2 Flow Rate FiO2 05/28/25 09:00 98.3 82 18 130/37 (68) 93 98.3 05/27/25 22:24 Nasal Cannula* 4 36 Intake/Output Intake and Output 05/28/25 07:00 Intake Total 100 ml Output Total 450 ml Balance -350 ml Intake Oral 0 ml IV Total 100 ml Output Urine Total 450 ml Medications Current Medications Medications Dose Ordered Sig/Preet Route Start Time Stop Time Status Last Admin Dose Admin Sodium Chloride 1,000 ml @ 120 mls/hr Q8H20M IV 05/27/25 16:15 05/28/25 08:55 120 MLS/HR Ondansetron HCl 4 mg Q4HP PRN IV 05/27/25 16:15 Acetaminophen 650 mg Q6HP PRN PO 05/27/25 16:15 Piperacillin Sod/ Tazobactam Sod 100 ml @ 25 mls/hr Q8HR IV 05/27/25 16:15 05/28/25 13:21 25 MLS/HR Atorvastatin Calcium 10 mg HS PO 05/27/25 22:00 Morphine Sulfate 2 mg Q4HPRN PRN IV 05/28/25 13:30 Laboratory Results Laboratory Tests 05/28/25 05:10 Chemistry Test 05/27/25 14:11 05/28/25 05:10 Albumin 4.5 g/dL (3.2-4.8) 4.2 g/dL (3.2-4.8) Calcium Level 9.4 mg/dL (8.7-10.4) 8.9 mg/dL (8.7-10.4) Total Protein 6.9 g/dL (5.7-8.2) 6.6 g/dL (5.7-8.2) Coagulation Test 05/27/25 14:11 Prothrombin Time 10.9 sec (9.3-11.8) Prothrombin Time INR 1.03 (0.9-1.15) Activated Partial Thromboplast Time 24.8 SEC (24.5-34.5) Lipid panel Test 05/27/25 14:11 Lipase 44 U/L (12-53) LFT Test 05/27/25 14:11 05/28/25 05:10 Alanine Aminotransferase (ALT) 26 U/L (7-40) 21 U/L (7-40) Alkaline Phosphatase 77 U/L (46-116) 62 U/L (46-116) Aspartate Amino Transferase (AST) 29 U/L (13-40) 32 U/L (13-40) Total Bilirubin 0.7 mg/dL (0.2-1.0) 0.7 mg/dL (0.2-1.0) Labs and/or images reviewed: Labs reviewed by me, Image(s) reviewed by me Assessment/Plan Assessment/Plan Sepsis secondary to acute appendicitis status post diagnostic laparoscopy converted to exploratory laparotomy lysis of adhesions and appendectomy by surgeon Dr. Gannon, continue Zosyn, morphine for the pain Intractable abdominal pain likely due to acute appendicitis Multiple mildly dilated loops of small bowel in the lower abdomen with multiple apparent transition points likely due to SBO Asymmetric soft tissue nodularity in the left breast with calcifications and metallic clips Hyperglycemia History of breast cancer History of partial mastectomy History of hyperlipidemia History of hysterectomy History of partial thyroidectomy History of duodenal ulcer Time spent 70 minutes Advanced care planning time 20 minutes Patient is full code DEMARCO Navarro at bedside Plan discussed with: Patient My Orders Orders - NORMA HICKMAN MD Procedure Category Date Status Time Morphine Sulfate PHA 05/28/25 In Process Injection 13:30 Date of Service: May 28, 2025 Billing Provider: NORMA HICKMAN MD Common Visit Codes: [id number] CARE 30-74 MIN NORMA HICKMAN MD May 28, 2025 13:31
[2025-05-28] MEDS ORDERED: ROCURONIUM 10MG/ML 10ML VIAL IV ONE (14:53)
[2025-05-28] MEDS: KETOROLAC TROMETH 30 MG/ML 1ML VIAL IV PRN (15:13)
[2025-05-28] MEDS: FLEET ENEMA(ADULT) 135 ML PR ONE (16:09)
[2025-05-28] MEDS: LACTATED RINGER'S 1,000 ML IV SCH (17:42)
--- NOTE | 2025-05-28 22:41 | DVHPN2 ---
Progress Note - Surgical Date Seen: May 28, 2025 Post op day Post op day: 1 Subjective Patient reports: No new complaints (Patient is feeling okay, although not really hungry, has a NG tube to low intermittent suctioned, not much coming out of the NG tube. Not passing gas) Review of Systems: Deferred Objective Vital signs Vital Sign Date Time Temp Pulse Resp B/P (MAP) Pulse Ox O2 Delivery O2 Flow Rate FiO2 05/28/25 17:00 98.3 77 18 128/68 (88) 94 98.3 05/28/25 08:00 Nasal Cannula* 4 36 Total Intake and Output 05/27/25 05/27/25 05/28/25 15:00 23:00 07:00 Intake Total 100 ml Output Total 450 ml Balance -350 ml Medications Current Medications Medications Dose Ordered Sig/Preet Route Start Time Stop Time Status Last Admin Dose Admin Ondansetron HCl 4 mg Q4HP PRN IV 05/27/25 16:15 Acetaminophen 650 mg Q6HP PRN PO 05/27/25 16:15 Piperacillin Sod/ Tazobactam Sod 100 ml @ 25 mls/hr Q8HR IV 05/27/25 16:15 05/28/25 22:03 25 MLS/HR Atorvastatin Calcium 10 mg HS PO 05/27/25 22:00 Morphine Sulfate 2 mg Q4HPRN PRN IV 05/28/25 13:30 Hold Ketorolac Tromethamine 30 mg Q6HPRN PRN IV 05/28/25 13:45 06/02/25 13:44 05/28/25 15:13 30 MG Lactated Ringer's 1,000 ml @ 150 mls/hr Q6H40M IV 05/28/25 13:45 05/28/25 17:42 150 MLS/HR Laboratory Laboratory Tests 05/28/25 05:10 Test 05/28/25 05:10 Range/Units Serum Glucose 146 H 74-106 mg/dL Microbiology Date/Time Source Procedure Growth Status 05/27/25 16:45 Blood Blood Culture - Preliminary NO GROWTH AFTER 24 HOURS OF INCUBATION. Resulted Examination: GENERAL:Normal, HEENT:Normal (NG tube with minimal output), ABDOMEN:Normal Labs and/or images reviewed: Labs reviewed by me (Leukocytosis 17 from 11 likely reactive to the surgery, hemoglobin stable at 14) Problem List/Assessment/Plan Problems: (1) Obstruction concurrent with and due to internal hernia of abdomen Assessment and Plan Mrs. Chin is a 75-year-old female who presented yesterday with small bowel obstruction due to internal hernia, she is currently postop day 1 from diagnostic laparoscopy converted to exploratory laparotomy, lysis of adhesions, and appendectomy. There was an adhesive band from the appendix to the lateral pelvic wall that caused the internal herniation small bowel, the affected small bowel was very congested hemorrhagic but still alive and peristalsing, no bowel resection was made. Patient today is feeling well although not really hungry, we will continue to monitor. 1. Continue NPO 2. NG tube to low intermittent suctioned 3. Out of bed and ambulate 4. A.m. labs, CBC and CMP 5. Recommended pain regimen: Tylenol 1000 mg p.o. every 6 hours, Toradol 15 mg IV every 8 hours x5 days, [place] 5 and 10 mg every 4 hours prn moderate and severe pain My Orders My Orders Orders - KRISHNA PACKER MD Procedure Category Date Status Time Complete Blood Count LAB 05/29/25 Verified 04:00 Comprehensive LAB 05/29/25 Verified Metabolic Panel 04:00 Plan discussed with Plan discussed with: Patient, Spouse Visit Coding Surgery Date of Service if different f: May 28, 2025 Billing Provider: KRISHNA PACKER MD Surgery Visit Codes: [id number] INP/OBS CARE(HIGH) KRISHNA PACKER MD May 28, 2025 22:41
[2025-05-29] VITALS (8 sets, daily range): BP systolic 104–147; BP diastolic 52–77; PULSE 74–86; RESP 14–18; TEMP 97.9–98.8; O2SAT 91–98
[2025-05-29 07:17] LABS: Alanine Aminotransferase 20 U/L (7-40); Albumin 3.5 g/dL (3.2-4.8); Alkaline Phosphatase 54 U/L (46-116); Anion Gap 13 (5-15); BUN/Creatinine Ratio 20.9 (10.0-20.0); Bilirubin, Total 0.8 mg/dL (0.2-1.0); Blood Urea Nitrogen 14 mg/dL (9-23); Carbon Dioxide 28 mmol/L (20-31); Chloride 106 mmol/L (98-107); Glucose 96 mg/dL (74-106); Potassium 3.8 mmol/L (3.5-5.1)
[2025-05-29 07:20] LABS: Calcium 8.5 mg/dL (8.7-10.4); Sodium 147 mmol/L (136-145); Total Protein 5.6 g/dL (5.7-8.2)
--- NOTE | 2025-05-29 08:46 | DVHPN2 ---
Reviewed: Care Plan, H&P, Labs, Medications, Previous Orders, Radiology Changes from previous H/P or p: No Changes Gastrointestinal: Nausea, Vomiting, Abdominal Pain Objective Vitals Vital Signs Date Time Temp Pulse Resp B/P (MAP) Pulse Ox O2 Delivery O2 Flow Rate FiO2 05/29/25 05:00 98.3 86 18 124/53 (76) 91 98.3 05/28/25 20:00 Nasal Cannula* 4 36 Intake/Output Intake and Output 05/29/25 07:00 Intake Total 1100 ml Output Total 625 ml Balance 475 ml Intake Oral 0 ml IV Total 350 ml Other 750 ml Output Urine Total 625 ml Medications Current Medications Medications Dose Ordered Sig/Preet Route Start Time Stop Time Status Last Admin Dose Admin Ondansetron HCl 4 mg Q4HP PRN IV 05/27/25 16:15 Acetaminophen 650 mg Q6HP PRN PO 05/27/25 16:15 Piperacillin Sod/ Tazobactam Sod 100 ml @ 25 mls/hr Q8HR IV 05/27/25 16:15 05/29/25 06:24 25 MLS/HR Atorvastatin Calcium 10 mg HS PO 05/27/25 22:00 Morphine Sulfate 2 mg Q4HPRN PRN IV 05/28/25 13:30 Hold Ketorolac Tromethamine 30 mg Q6HPRN PRN IV 05/28/25 13:45 06/02/25 13:44 05/28/25 15:13 30 MG Lactated Ringer's 1,000 ml @ 150 mls/hr Q6H40M IV 05/28/25 13:45 05/29/25 01:30 150 MLS/HR Laboratory Results Laboratory Tests 05/29/25 05:30 Chemistry Test 05/29/25 05:30 Albumin 3.5 g/dL (3.2-4.8) Calcium Level 8.5 mg/dL (8.7-10.4) L Total Protein 5.6 g/dL (5.7-8.2) L LFT Test 05/29/25 05:30 Alanine Aminotransferase (ALT) 20 U/L (7-40) Alkaline Phosphatase 54 U/L (46-116) Aspartate Amino Transferase (AST) 34 U/L (13-40) Total Bilirubin 0.8 mg/dL (0.2-1.0) Microbiology Microbiology Date/Time Source Procedure Growth Status 05/27/25 16:45 Blood Blood Culture - Preliminary NO GROWTH AFTER 24 HOURS OF INCUBATION. Resulted Labs and/or images reviewed: Labs reviewed by me, Image(s) reviewed by me Assessment/Plan Assessment/Plan Sepsis secondary to acute appendicitis status post diagnostic laparoscopy converted to exploratory laparotomy lysis of adhesions and appendectomy by surgeon Dr. Gannon, continue Zosyn, morphine for the pain Intractable abdominal pain likely due to acute appendicitis Multiple mildly dilated loops of small bowel in the lower abdomen with multiple apparent transition points likely due to SBO Hyperglycemia History of breast cancer status post partial mastectomy Hypercholesterolemia History of duodenal ulcer History of partial thyroidectomy NG tube clamped and liquid diet started per recommendation of surgeon Dr. Gannon GI prophylaxis: Pantoprazole Time spent 50 minutes Advanced care planning time 20 minutes Patient is full code DEMARCO Navarro at bedside Plan discussed with: Patient My Orders Orders - NORMA HICKMAN MD Procedure Category Date Status Time Morphine Sulfate PHA 05/28/25 In Process Injection 13:30 Ketorolac Injection PHA 05/28/25 In Process (Toradol Injection) 13:45 Lactated Ringer's PHA 05/28/25 In Process 13:45 Complete Blood Count LAB 05/30/25 Verified 04:00 Comprehensive LAB 05/30/25 Verified Metabolic Panel 04:00 Date of Service: May 29, 2025 Billing Provider: NORMA HICKMAN MD Common Visit Codes: [id number] INP/OBS CARE(HIGH) NORMA HICKMAN MD May 29, 2025 08:46
[2025-05-29] MEDS ORDERED: ACETAMINOPHEN 650 MG RECT SUPP PR PRN (09:00)
[2025-05-29] MEDS: PANTOPRAZOLE 40 MG/10 ML VIAL INJ IV SCH (09:35)
--- NOTE | 2025-05-29 09:56 | DVHPN2 ---
Progress Note - Surgical Date Seen: May 29, 2025 Post op day Post op day: 2 Subjective Patient reports: Feels better (Patient feeling better today, not aware if she is passing gas but has some rumbling in her stomach, she was able to walk yesterday, now much coming out of the NG tube.) Review of Systems: Deferred Objective Vital signs Vital Sign Date Time Temp Pulse Resp B/P (MAP) Pulse Ox O2 Delivery O2 Flow Rate FiO2 05/29/25 05:00 98.3 86 18 124/53 (76) 91 98.3 05/28/25 20:00 Nasal Cannula* 4 36 Total Intake and Output 05/28/25 05/28/25 05/29/25 15:00 23:00 07:00 Intake Total 1000 ml 100 ml Output Total 450 ml 175 ml Balance 550 ml -75 ml Medications Current Medications Medications Dose Ordered Sig/Preet Route Start Time Stop Time Status Last Admin Dose Admin Ondansetron HCl 4 mg Q4HP PRN IV 05/27/25 16:15 Acetaminophen 650 mg Q6HP PRN PO 05/27/25 16:15 Piperacillin Sod/ Tazobactam Sod 100 ml @ 25 mls/hr Q8HR IV 05/27/25 16:15 05/29/25 06:24 25 MLS/HR Atorvastatin Calcium 10 mg HS PO 05/27/25 22:00 Lactated Ringer's 1,000 ml @ 150 mls/hr Q6H40M IV 05/28/25 13:45 05/29/25 01:30 150 MLS/HR Acetaminophen 650 mg Q6HP PRN SC 05/29/25 09:00 Pantoprazole Sodium 40 mg BID IV 05/29/25 10:00 05/29/25 09:35 40 MG Laboratory Laboratory Tests 05/29/25 05:30 Test 05/29/25 05:30 Range/Units Serum Glucose 96 74-106 mg/dL Microbiology Date/Time Source Procedure Growth Status 05/27/25 16:45 Blood Blood Culture - Preliminary NO GROWTH AFTER 24 HOURS OF INCUBATION. Resulted Examination: GENERAL:Normal, ABDOMEN:Normal (Nondistended, soft, depressible, midline wound with angelique in place and no surrounding signs of infection, appropriate tenderness) Labs and/or images reviewed: Labs reviewed by me (CMP unremarkable, still pending CBC) Problem List/Assessment/Plan Assessment and Plan Mrs. Chin is a 75-year-old female who presented yesterday with small bowel obstruction due to internal hernia, she is currently postop day 2 from diagnostic laparoscopy converted to exploratory laparotomy, lysis of adhesions, and appendectomy. There was an adhesive band from the appendix to the lateral pelvic wall that caused the internal herniation small bowel, the affected small bowel was very congested hemorrhagic but still alive and peristalsing, no bowel resection was made. Interval: Patient feeling better, she will need to continue ambulating, I will clamp the NG tube and advance her to clear liquid diet. 1. Clear liquid diet and advance as tolerated 2. Clamp NG tube and give clears, if she gets advanced past clear liquids today please remove NG tube 3. Out of bed and ambulate 4. A.m. labs, CBC and CMP 5. Recommended pain regimen: Tylenol 1000 mg p.o. every 6 hours, Toradol 15 mg IV every 8 hours x5 days, [place] 5 and 10 mg every 4 hours prn moderate and severe pain 6. Abdominal binder for support 7. Incentive spirometry My Orders My Orders Orders - KRISHNA PACKER MD Procedure Category Date Status Time Complete Blood Count LAB 05/29/25 Logged 04:00 Communication Order ORDERS 05/29/25 Transmitted 09:49 Plan discussed with Plan discussed with: Patient Visit Coding Surgery Date of Service if different f: May 29, 2025 Billing Provider: KRISHNA PACKER MD Surgery Visit Codes: [id number] INP/OBS CARE(HIGH) KRISHNA PACKER MD May 29, 2025 09:55
[2025-05-29 10:27] LABS: Hematocrit 37.0 % (36.0-46.0); Hemoglobin 12.6 g/dL (12.2-16.2); Mean Corpuscular Hemoglobin 32.0 pg (28.0-32.0); Mean Corpuscular Volume 94.1 fL (80.0-100.0); Nucleated Red Blood Cells % 0.0 %
[2025-05-29] MEDS: diphenhydrAMINE HCL 50 MG/1 ML VL IM PRN (13:54)
[2025-05-30] VITALS (8 sets, daily range): BP systolic 116–132; BP diastolic 47–69; PULSE 80–89; RESP 15–20; TEMP 98.2–98.7; O2SAT 90–95
[2025-05-30 06:53] LABS: Hematocrit 40.3 % (36.0-46.0); Hemoglobin 13.4 g/dL (12.2-16.2); Mean Corpuscular Hemoglobin 31.5 pg (28.0-32.0); Mean Corpuscular Volume 94.3 fL (80.0-100.0); Nucleated Red Blood Cells % 0.1 %
--- NOTE | 2025-05-30 09:42 | DVHPN2 ---
Reviewed: Care Plan, H&P, Labs, Medications, Previous Orders, Radiology Changes from previous H/P or p: No Changes Gastrointestinal: Nausea, Vomiting, Abdominal Pain Objective Vitals Vital Signs Date Time Temp Pulse Resp B/P (MAP) Pulse Ox O2 Delivery O2 Flow Rate FiO2 05/30/25 05:00 98.2 84 17 116/59 (78) 90 98.2 05/29/25 20:00 Room Air* 0 21 Intake/Output Intake and Output 05/30/25 07:00 Intake Total 640 ml Balance 640 ml Intake Oral 540 ml IV Total 100 ml # Voids 5 # Bowel Movements 2 Medications Current Medications Medications Dose Ordered Sig/Preet Route Start Time Stop Time Status Last Admin Dose Admin Ondansetron HCl 4 mg Q4HP PRN IV 05/27/25 16:15 Acetaminophen 650 mg Q6HP PRN PO 05/27/25 16:15 Piperacillin Sod/ Tazobactam Sod 100 ml @ 25 mls/hr Q8HR IV 05/27/25 16:15 05/30/25 05:13 25 MLS/HR Atorvastatin Calcium 10 mg HS PO 05/27/25 22:00 05/29/25 22:06 10 MG Lactated Ringer's 1,000 ml @ 150 mls/hr Q6H40M IV 05/28/25 13:45 05/29/25 16:41 150 MLS/HR Acetaminophen 650 mg Q6HP PRN [place] 05/29/25 09:00 Pantoprazole Sodium 40 mg BID IV 05/29/25 10:00 05/29/25 22:06 40 MG Diphenhydramine HCl 25 mg Q8HPRN PRN IM 05/29/25 13:45 05/29/25 22:06 25 MG Laboratory Results Laboratory Tests 05/29/25 05:30 05/30/25 05:40 Microbiology Microbiology Date/Time Source Procedure Growth Status 05/27/25 16:45 Blood Blood Culture - Preliminary NO GROWTH AFTER 48 HOURS OF INCUBATION. Resulted Labs and/or images reviewed: Labs reviewed by me, Image(s) reviewed by me Assessment/Plan Assessment/Plan Sepsis secondary to acute appendicitis status post diagnostic laparoscopy converted to exploratory laparotomy lysis of adhesions and appendectomy by surgeon Dr. Gannon, continue Zosyn, morphine for the pain Intractable abdominal pain likely due to acute appendicitis Multiple mildly dilated loops of small bowel in the lower abdomen with multiple apparent transition points likely due to SBO Hyperglycemia History of breast cancer status post partial mastectomy Hypercholesterolemia History of duodenal ulcer History of partial thyroidectomy NG tube clamped and liquid diet started per recommendation of surgeon Dr. Gannon GI prophylaxis: Pantoprazole Allergic rash possibly allergic to Zosyn, DC Zosyn start Rocephin and Flagyl; start Benadryl New PCP recommended Dr Sarah Time spent 50 minutes Advanced care planning time 20 minutes Patient is full code DEMARCO Navarro at bedside Plan discussed with: Patient My Orders Orders - NORMA HICKMAN MD Procedure Category Date Status Time Clear Liq Diet DIET 05/29/25 Transmitted Lunch Discontinue Johnson [place] 05/29/25 In Process Catheter 09:48 Diphenhdramine PHA 05/29/25 In Process Injection (Benadryl 13:45 Date of Service: May 30, 2025 Billing Provider: NORMA HICKMAN MD Common Visit Codes: [id number] INP/OBS CARE(HIGH) NORMA HICKMAN MD May 30, 2025 09:42
[2025-05-30 11:52] LABS: Alanine Aminotransferase 14 U/L (7-40); Albumin 3.3 g/dL (3.2-4.8); Anion Gap 9 (5-15); BUN/Creatinine Ratio 19.1 (10.0-20.0); Blood Urea Nitrogen 13 mg/dL (9-23); Chloride 104 mmol/L (98-107); Sodium 144 mmol/L (136-145)
[2025-05-30 11:53] LABS: Bilirubin, Total 1.0 mg/dL (0.2-1.0)
[2025-05-30 11:55] LABS: Alkaline Phosphatase 46 U/L (46-116); Calcium 8.2 mg/dL (8.7-10.4); Carbon Dioxide 31 mmol/L (20-31); Glucose 126 mg/dL (74-106); Potassium 3.2 mmol/L (3.5-5.1); Total Protein 5.4 g/dL (5.7-8.2)
[2025-05-30] MEDS: diphenhydrAMINE HCL 50 MG/1 ML VL IV SCH (12:00)
--- NOTE | 2025-05-30 12:05 | DVHPN2 ---
Progress Note - Surgical Date Seen: May 30, 2025 Post op day Post op day: 3 Subjective Review of Systems: Not Done Objective Vital signs Vital Sign Date Time Temp Pulse Resp B/P (MAP) Pulse Ox O2 Delivery O2 Flow Rate FiO2 05/30/25 09:00 98.5 80 16 131/58 (82) 95 98.5 05/30/25 08:00 Room Air* 0 21 Total Intake and Output 05/29/25 05/29/25 05/30/25 15:00 23:00 07:00 Intake Total 340 ml 300 ml Balance 340 ml 300 ml Medications Current Medications Medications Dose Ordered Sig/Preet Route Start Time Stop Time Status Last Admin Dose Admin Ondansetron HCl 4 mg Q4HP PRN IV 05/27/25 16:15 Acetaminophen 650 mg Q6HP PRN PO 05/27/25 16:15 Atorvastatin Calcium 10 mg HS PO 05/27/25 22:00 05/29/25 22:06 10 MG Lactated Ringer's 1,000 ml @ 150 mls/hr Q6H40M IV 05/28/25 13:45 05/29/25 16:41 150 MLS/HR Acetaminophen 650 mg Q6HP PRN [place] 05/29/25 09:00 Pantoprazole Sodium 40 mg BID IV 05/29/25 10:00 05/30/25 09:44 40 MG Ceftriaxone Sodium 50 ml @ 100 mls/hr DAILY@09 IV 05/31/25 09:00 Metronidazole 100 ml @ 100 mls/hr Q8HR IV 05/30/25 14:00 Diphenhydramine HCl 25 mg Q6HR IV 05/30/25 12:00 Laboratory Laboratory Tests 05/30/25 05:40 Test 05/30/25 10:45 Range/Units Serum Glucose Pending Microbiology Date/Time Source Procedure Growth Status 05/27/25 16:45 Blood Blood Culture - Preliminary NO GROWTH AFTER 48 HOURS OF INCUBATION. Resulted Examination: ABDOMEN:Normal (Nondistended, soft, depressible, angelique midline wound and on left lower quadrant port site, no surrounding signs of infection, appropriate postsurgical tenderness), SKIN:Abnormal (Skin rash) Labs and/or images reviewed: Labs reviewed by me (Leukocytosis at 14.2 from 11.1) Problem List/Assessment/Plan Assessment and Plan Mrs. Chin is a 75-year-old female who presented yesterday with small bowel obstruction due to internal hernia, she is currently postop day 3 from diagnostic laparoscopy converted to exploratory laparotomy, lysis of adhesions, and appendectomy. There was an adhesive band from the appendix to the lateral pelvic wall that caused the internal herniation small bowel, the affected small bowel was very congested hemorrhagic but still alive and peristalsing, no bowel resection was made. Interval: Patient ambulating, had 2 bowel movements, tolerated NG tube clamping since yesterday and has been on a clear liquid diet. Advance diet to regular and if patient tolerates she can be discharged home per surgical standpoint in the afternoon. Patient has a skin rash, possibly due to the antibiotics she is receiving, per surgical standpoint she does not need any antibiotics, there was no source of infection inside the peritoneal cavity. 1. Advanced to regular diet 2. Discontinue NG tube 3. Out of bed and ambulate 4. If patient tolerates regular diet, she can be discharged home per surgical standpoint 5. Recommended pain medications for home: Tylenol 650 mg p.o. every 6 hours, ibuprofen 600 mg p.o. every 8 hours for 5 days, [place] 5 p.r.n. severe pain 6. MiraLax 1 packet daily 7. No heavy lifting over 10 lb for 8 weeks 8. May shower soap and water okay to run over incision sites. No bathing or swimming for 2 weeks 9. Follow-up with Dr. Gannon at surgery Clinic in 10 to 12 days for staple removal My Orders My Orders Orders - KRISHNA PACKER MD Procedure Category Date Status Time Discontinue Ng ORDERS 05/30/25 Transmitted 11:53 Regular Diet DIET 05/30/25 Transmitted Lunch Plan discussed with Plan discussed with: Other Visit Coding Surgery Date of Service if different f: May 30, 2025 Billing Provider: KRISHNA PACKER MD Surgery Visit Codes: NOT BILLABLE KRISHNA PACKER MD May 30, 2025 12:05
[2025-05-31] VITALS (8 sets, daily range): BP systolic 100–122; BP diastolic 41–70; PULSE 80–141; RESP 16–23; TEMP 98.1–99.1; O2SAT 90–96
[2025-05-31 07:34] LABS: Hematocrit 36.8 % (36.0-46.0); Hemoglobin 12.7 g/dL (12.2-16.2); Mean Corpuscular Hemoglobin 31.9 pg (28.0-32.0); Mean Corpuscular Volume 92.7 fL (80.0-100.0); Nucleated Red Blood Cells % 0.0 %
--- NOTE | 2025-05-31 07:42 | ECG ---
[facility] Test Date: 2025-05-31 Test Time: 07:30:31 Pat Name: ALESSANDRO PACHECO Department: Room: 0216T B Gender: F Electrical Wirer: PRISCILLA : 1950 Requested By: GUALBERTO ALEXANDRA Order Number: [id number] Reading MD: Festus Franklin Measurements Intervals [place] Rate: 126 P: 0 DC: 0 QRS: 6 QRSD: 86 T: 251 QT: 314 QTc: 455 Interpretive Statements Atrial fibrillation Repol abnrm suggests ischemia, diffuse leads Baseline wander in lead(s) V2 Electronically Signed On 06-05-2025 19:36:16 PDT by Festus Franklin Please click the below link to view image of tracing.
[2025-05-31 07:45] LABS: Alanine Aminotransferase 17 U/L (7-40); Anion Gap 10 (5-15); BUN/Creatinine Ratio 27.9 (10.0-20.0); Blood Urea Nitrogen 19 mg/dL (9-23); Carbon Dioxide 29 mmol/L (20-31); Chloride 105 mmol/L (98-107); Sodium 144 mmol/L (136-145)
[2025-05-31 07:46] LABS: Bilirubin, Total 0.8 mg/dL (0.2-1.0)
[2025-05-31 07:47] LABS: Albumin 3.0 g/dL (3.2-4.8); Alkaline Phosphatase 46 U/L (46-116); Calcium 7.7 mg/dL (8.7-10.4); Glucose 113 mg/dL (74-106); Potassium 3.2 mmol/L (3.5-5.1); Total Protein 4.8 g/dL (5.7-8.2)
--- NOTE | 2025-05-31 09:23 | DVHPN2 ---
Reviewed: Care Plan, H&P, Labs, Medications, Previous Orders, Radiology Changes from previous H/P or p: No Changes Gastrointestinal: Nausea, Vomiting, Abdominal Pain Objective Vitals Vital Signs Date Time Temp Pulse Resp B/P (MAP) Pulse Ox O2 Delivery O2 Flow Rate FiO2 05/31/25 05:00 99.1 80 18 116/46 (69) 91 99.1 05/30/25 20:00 Room Air* 0 21 Intake/Output Intake and Output 05/31/25 07:00 Intake Total 2140 ml Balance 2140 ml Intake Oral 440 ml IV Total 350 ml Other 1350 ml # Voids 8 # Bowel Movements 1 Medications Current Medications Medications Dose Ordered Sig/Preet Route Start Time Stop Time Status Last Admin Dose Admin Ondansetron HCl 4 mg Q4HP PRN IV 05/27/25 16:15 Acetaminophen 650 mg Q6HP PRN PO 05/27/25 16:15 Atorvastatin Calcium 10 mg HS PO 05/27/25 22:00 05/30/25 22:56 10 MG Lactated Ringer's 1,000 ml @ 150 mls/hr Q6H40M IV 05/28/25 13:45 05/30/25 14:49 150 MLS/HR Acetaminophen 650 mg Q6HP PRN [place] 05/29/25 09:00 Pantoprazole Sodium 40 mg BID IV 05/29/25 10:00 05/30/25 22:56 40 MG Ceftriaxone Sodium 50 ml @ 100 mls/hr DAILY@09 IV 05/31/25 09:00 Metronidazole 100 ml @ 100 mls/hr Q8HR IV 05/30/25 14:00 05/31/25 05:06 100 MLS/HR Diphenhydramine HCl 25 mg Q6HR IV 05/30/25 12:00 05/31/25 05:06 25 MG Laboratory Results Laboratory Tests 05/31/25 07:14 Chemistry Test 05/30/25 10:45 05/31/25 07:14 Albumin 3.3 g/dL (3.2-4.8) 3.0 g/dL (3.2-4.8) L Calcium Level 8.2 mg/dL (8.7-10.4) L 7.7 mg/dL (8.7-10.4) L Total Protein 5.4 g/dL (5.7-8.2) L 4.8 g/dL (5.7-8.2) L LFT Test 05/30/25 10:45 05/31/25 07:14 Alanine Aminotransferase (ALT) 14 U/L (7-40) 17 U/L (7-40) Alkaline Phosphatase 46 U/L (46-116) 46 U/L (46-116) Aspartate Amino Transferase (AST) 24 U/L (13-40) 16 U/L (13-40) Total Bilirubin 1.0 mg/dL (0.2-1.0) 0.8 mg/dL (0.2-1.0) Microbiology Microbiology Date/Time Source Procedure Growth Status 05/27/25 16:45 Blood Blood Culture - Preliminary NO GROWTH AFTER 72 HOURS OF INCUBATION. Resulted Labs and/or images reviewed: Labs reviewed by me, Image(s) reviewed by me Assessment/Plan Assessment/Plan Sepsis secondary to acute appendicitis status post diagnostic laparoscopy converted to exploratory laparotomy lysis of adhesions and appendectomy by surgeon Dr. Gannon, continue Zosyn, morphine for the pain Intractable abdominal pain likely due to acute appendicitis Multiple mildly dilated loops of small bowel in the lower abdomen with multiple apparent transition points likely due to SBO Hyperglycemia History of breast cancer status post partial mastectomy Hypercholesterolemia History of duodenal ulcer History of partial thyroidectomy NG tube clamped and liquid diet started per recommendation of surgeon Dr. Gannon GI prophylaxis: Pantoprazole Allergic rash possibly allergic to Zosyn, DC Zosyn start Rocephin and Flagyl, Benadryl New onset tachycardia: Echocardiogram cardiology consult troponin New PCP recommended Dr Sarah Time spent 50 minutes Advanced care planning time 20 minutes Patient is full code DEMARCO Navarro at bedside Plan discussed with: Patient My Orders Orders - NORMA HICKMAN MD Procedure Category Date Status Time Ceftriaxone 1gm/50ml PHA 05/31/25 In Process (Rocephin) 09:00 Metronidazole PHA 05/30/25 In Process 500mg/100ml (Flagyl 14:00 Diphenhdramine PHA 05/30/25 In Process Injection (Benadryl 12:00 Complete Blood Count LAB 06/01/25 Verified 05:00 Complete Blood Count LAB 06/02/25 Verified 05:00 Complete Blood Count LAB 06/03/25 Verified 05:00 Complete Blood Count LAB 06/04/25 Verified 05:00 Comprehensive LAB 06/01/25 Verified Metabolic Panel 05:00 Comprehensive LAB 06/02/25 Verified Metabolic Panel 05:00 Comprehensive LAB 06/03/25 Verified Metabolic Panel 05:00 Comprehensive LAB 06/04/25 Verified Metabolic Panel 05:00 * Cardiology Consult CONS 05/31/25 Transmitted 08:07 Date of Service: May 31, 2025 Billing Provider: NORMA HICKMAN MD Common Visit Codes: [id number] CARE 30-74 MIN NORMA HICKMAN MD May 31, 2025 09:23
--- NOTE | 2025-05-31 10:16 | DVHPN2 ---
Progress Note - Surgical Date Seen: May 31, 2025 Post op day Post op day: 4 Subjective Patient reports: No new complaints Review of Systems: Not Done Objective Vital signs Vital Sign Date Time Temp Pulse Resp B/P (MAP) Pulse Ox O2 Delivery O2 Flow Rate FiO2 05/31/25 05:00 99.1 80 18 116/46 (69) 91 99.1 05/30/25 20:00 Room Air* 0 21 Total Intake and Output 05/30/25 05/30/25 05/31/25 15:00 23:00 07:00 Intake Total 50 ml 1450 ml 640 ml Balance 50 ml 1450 ml 640 ml Medications Current Medications Medications Dose Ordered Sig/Preet Route Start Time Stop Time Status Last Admin Dose Admin Ondansetron HCl 4 mg Q4HP PRN IV 05/27/25 16:15 Acetaminophen 650 mg Q6HP PRN PO 05/27/25 16:15 Atorvastatin Calcium 10 mg HS PO 05/27/25 22:00 05/30/25 22:56 10 MG Lactated Ringer's 1,000 ml @ 150 mls/hr Q6H40M IV 05/28/25 13:45 05/30/25 14:49 150 MLS/HR Acetaminophen 650 mg Q6HP PRN [place] 05/29/25 09:00 Pantoprazole Sodium 40 mg BID IV 05/29/25 10:00 05/30/25 22:56 40 MG Ceftriaxone Sodium 50 ml @ 100 mls/hr DAILY@09 IV 05/31/25 09:00 Metronidazole 100 ml @ 100 mls/hr Q8HR IV 05/30/25 14:00 05/31/25 05:06 100 MLS/HR Diphenhydramine HCl 25 mg Q6HR IV 05/30/25 12:00 05/31/25 05:06 25 MG Laboratory Laboratory Tests 05/31/25 07:14 Test 05/31/25 07:14 Range/Units Serum Glucose 113 H 74-106 mg/dL Microbiology Date/Time Source Procedure Growth Status 05/27/25 16:45 Blood Blood Culture - Preliminary NO GROWTH AFTER 72 HOURS OF INCUBATION. Resulted Examination: ABDOMEN:Normal Labs and/or images reviewed: Labs reviewed by me Problem List/Assessment/Plan Assessment and Plan Mrs. Chin is a 75-year-old female who presented yesterday with small bowel obstruction due to internal hernia, she is currently postop day 3 from diagnostic laparoscopy converted to exploratory laparotomy, lysis of adhesions, and appendectomy. There was an adhesive band from the appendix to the lateral pelvic wall that caused the internal herniation small bowel, the affected small bowel was very congested hemorrhagic but still alive and peristalsing, no bowel resection was made. Interval: Tolerating regular diet, ambulating, having BM. Cleared from surgical standpoint for discharge. 1. regular diet 2. Out of bed and ambulate 3. Cleared for discharge per surgical standpoint 4. Recommended pain medications for home: Tylenol 650 mg p.o. every 6 hours, ibuprofen 600 mg p.o. every 8 hours for 5 days, [place] 5 p.r.n. severe pain 5. MiraLax 1 packet daily 6. No heavy lifting over 10 lb for 8 weeks 7. May shower soap and water okay to run over incision sites. No bathing or swimming for 2 weeks 8. Follow-up with Dr. Gannon at surgery Clinic in 10 days for staple removal My Orders My Orders Orders - KRISHNA PACKER MD Procedure Category Date Status Time Discontinue Ng ORDERS 05/30/25 Transmitted 11:53 Regular Diet DIET 05/30/25 Transmitted Lunch Plan discussed with Plan discussed with: Other (nurse) Visit Coding Surgery Date of Service if different f: May 31, 2025 Billing Provider: KRISHNA PACKER MD Surgery Visit Codes: NOT BILLABLE KRISHNA PACKER MD May 31, 2025 10:16
--- NOTE | 2025-05-31 11:11 | DVHINCON2 ---
Date Seen: May 31, 2025 Referring Physician MD David Reason for Consultation New onset a-fib History of Present Illness This is a pleasant 75-year-old female who presented to the emergency room with a chief complaint of abdominal pain for 1 hour prior to arrival. The patient reports she developed diffuse abdominal pain associated with nausea and vomiting. She was found with a closed loop small-bowel obstruction for which she underwent an exploratory laparotomy, lysis of adhesions, and appendectomy with Dr. Gannon on 05/27/2025. During admission, she transition from a normal sinus rhythm into an atrial fibrillation rhythm with rapid ventricular rate on 05/31/2025 at 0200. Upon assessment, the patient had transitioned back into a NSR without any medical interventions. Denies any active cardiac symptoms. Serial troponin levels are negative. Significant medical history includes dyslipidemia, unspecified mitral valve disease, breast cancer status post partial left-sided mastectomy, partial thyroidectomy, and obesity. Past Medical History Past medical history reviewed. No other significant than mentioned above. Past Surgical History Partial left-sided mastectomy Partial thyroidectomy Hysterectomy Family History: Diabetes mellitus G8 FATHER FH: heart attack G8 FATHER Family History Family history reviewed. Social History Denies the use of illicit drugs, alcohol, or tobacco use. Allergies: Coded Allergies: Hydrocodone (Verified Allergy, Severe, Blistering rash and fever, 05/28/25) Per pt 05/28/25 Hydrocortisone (Verified Allergy, Unknown, 05/27/25) NSAIDs (Verified Allergy, Unknown, 05/27/25) Povidone Iodine (Verified Allergy, Unknown, 05/27/25) Sulfa Antibiotics (Verified Allergy, Unknown, 05/27/25) Home Meds Reported Medications Simvastatin (Simvastatin) 20 Mg Tab, 1 TAB PO 05/27/25 Home Meds Home medications reviewed. Current Medications Current Medications Medications (Trade) Dose Ordered Sig/Preet Route PRN Reason Start Time Stop Time Status Last Admin Ceftriaxone Sodium 50 ml @ 100 mls/hr DAILY@09 IV 05/31/25 09:00 05/31/25 09:00 Metronidazole 100 ml @ 100 mls/hr Q8HR IV 05/30/25 14:00 05/31/25 05:06 Diphenhydramine HCl (Benadryl Injection) 25 mg Q6HR IV 05/30/25 12:00 05/31/25 05:06 Review of Systems Constitutional: No symptom reported Ears, Nose, & Throat: No symptom reported Eyes: No symptom reported Neurological: No symptoms reported Pulmonary/Respiratory: No symptom reported Cardiovascular: No symptom reported Gastrointestinal: Abdominal pain, nausea, vomiting Genitourinary: No symptom reported Musculoskeletal: No symptom reported Skin: No symptom reported Psychiatric: No symptom reported Endocrine: No symptom reported Hemotologic/Lymphatic: No symptom reported Vital Signs Vital Signs Date Time Temp Pulse Resp B/P (MAP) Pulse Ox O2 Delivery O2 Flow Rate FiO2 05/31/25 05:00 99.1 80 18 116/46 (69) 91 99.1 05/30/25 20:00 Room Air* 0 21 Physical Exam General Appearance: Cooperative. Well developed. Obese. In no acute distress Head Exam: Normal inspection Neck Exam: Normal inspection. Non-tender. Normal alignment Pulmonary/Respiratory: Chest non-tender. Crackles to bilateral breath sounds Cardiovascular/Chest: Regular rate and rhythm. S1, S2. NSR. No murmurs. No JVD. Peripheral Pulses: 2+ Radial (R). 2+ Radial (L). 2+ Pedal (R). 2+ Pedal (L) Abdominal Exam: Normal bowel sounds. Soft. Ankle Exam: Negative ankle edema Lower extremities: Negative lower extremity edema Neuro/Mental Status: A&O x4. Coherent Thoughts/Psych: Normal thought pattern. Appropriate mood and affect. Anxious Appearance: In no acute distress Skin Exam: Generalized non-pruritic rash Labs/Diagnostic Data Labs Test 05/31/25 07:14 05/27/25 16:45 05/27/25 14:11 Range/Units White Blood Count 13.9 H 4.4-10.8 10^3/uL Red Blood Count 3.97 L 4.0-5.20 10^6/uL Hemoglobin 12.7 12.2-16.2 g/dL Hematocrit 36.8 36.0-46.0 % Mean Corpuscular Volume 92.7 80.0-100.0 fL Mean Corpuscular Hemoglobin 31.9 28.0-32.0 pg Mean Corpuscular Hemoglobin Concent 34.4 32.0-36.0 g/dL Red Cell Distribution Width 13.8 11.8-14.3 % Platelet Count 153 140-450 10^3/uL Mean Platelet Volume 8.8 6.9-10.8 fL Neutrophils (%) (Auto) 88.7 H 37.0-80.0 % Lymphocytes (%) (Auto) 3.0 L 10.0-50.0 % Monocytes (%) (Auto) 5.6 0.0-12.0 % Eosinophils (%) (Auto) 2.6 0.0-7.0 % Basophils (%) (Auto) 0.1 0.0-2.0 % Neutrophils # (Auto) 12.3 H 1.6-8.6 10 ^3/uL Lymphocytes # (Auto) 0.4 0.4-5.4 10 ^3/uL Monocytes # (Auto) 0.8 0-1.3 10 ^3/uL Eosinophils # (Auto) 0.4 0-0.8 10 ^3/uL Basophils # (Auto) 0 0-0.2 10 ^3/uL Nucleated Red Blood Cells 0.0 % Sodium Level 144 136-145 mmol/L Potassium Level 3.2 L 3.5-5.1 mmol/L Chloride Level 105 98-107 mmol/L Carbon Dioxide Level 29 20-31 mmol/L Anion Gap 10 5-15 Blood Urea Nitrogen 19 9-23 mg/dL Creatinine 0.68 0.550-1.02 mg/dL Glomerular Filtration Rate Calc 91 >90 mL/min BUN/Creatinine Ratio 27.9 H 10.0-20.0 Serum Glucose 113 H 74-106 mg/dL Calcium Level 7.7 L 8.7-10.4 mg/dL Total Bilirubin 0.8 0.2-1.0 mg/dL Aspartate Amino Transferase (AST) 16 13-40 U/L Alanine Aminotransferase (ALT) 17 7-40 U/L Alkaline Phosphatase 46 46-116 U/L Troponin I High Sensitivity 12 </=34 ng/L Total Protein 4.8 L 5.7-8.2 g/dL Albumin 3.0 L 3.2-4.8 g/dL Lactic Acid Level 2.5 *H 0.4-2.0 mmol/L Prothrombin Time 10.9 9.3-11.8 sec Prothrombin Time INR 1.03 0.9-1.15 Activated Partial Thromboplast Time 24.8 24.5-34.5 SEC Lipase 44 12-53 U/L Microbiology Date/Time Source Procedure Growth Status 05/27/25 16:45 Blood Blood Culture - Preliminary NO GROWTH AFTER 72 HOURS OF INCUBATION. Resulted Assessment Paroxysmal atrial fibrillation with RVR, stage IIIa, newly diagnosed Rule out structural heart disease Generalized non-pruritic rash Hypertension Dyslipidemia Obesity Plan/Recommendation (Dr. Venegas) The patient developed overnight new onset atrial fibrillation with RVR which had converted into a NSR at time of assessment. Recommendations are to initiate metoprolol XL, therapeutic Lovenox, and to replenish electrolytes as needed K>4 and Mg>2. Magnesium and TSH levels pending at this time. We will continue further cardiac evaluation with a transthoracic echocardiogram to evaluate cardiac function. Of note, consider autoimmune disease as a differential for intermittent generalized non-pruritic rash for the past few months, PIYUSH ordered, we will defer further evaluation to primary care team. Further orders and recommendations per clinical course. Thank you for allowing us to participate in this patient's care. Please call if you have any questions or concerns. This medical document was created using an electronic medical record system with voice recognition software and computerized dictation system. Although this do cument has been carefully reviewed, there might still be some phonetic and typographical errors. Occasional wrong-word or ``sound-alike substitutions may have occurred due to the inherent limitations of voice recognition software. These areas are purely typographical due to imperfections of the software programs and do not reflect any compromise in the patient's medical care. Please read the chart carefully and recognize, using context, where these substitutions have occurred. Plan discussed with: Patient, Spouse, Other NYHA Physical activity limitations: NA Date of Service: May 31, 2025 Billing Provider: BRAD MYRICK Cardiology Common Codes: [id number] INP/OBS CARE (High) BRAD MYRICK May 31, 2025 11:11
[2025-05-31 11:33] LABS: Magnesium 2.1 mg/dL (1.6-2.6); Triglycerides 117.0 mg/dL (< 150)
[2025-05-31 11:35] LABS: Cholesterol 129.0 mg/dL (< 200)
[2025-05-31 11:36] LABS: HDL Cholesterol 38.0 mg/dL (40-59)
[2025-05-31] MEDS: METOPROLOL SUCCINATE XL 50 MG TAB PO ONE (12:12)
[2025-05-31] MEDS: ENOXAPARIN SOD 80 MG/0.8ML SYRINGE SC ONE (12:13)
[2025-05-31] MEDS: POTASSIUM EFFERVESENT TAB 25 MEQ PO ONE (12:13)
[2025-05-31] MEDS: FUROSEMIDE 20 MG/2 ML VIAL IV ONE (12:25)
[2025-05-31] MEDS: ENOXAPARIN SOD 80 MG/0.8ML SYRINGE SC SCH (21:27)
[2025-06-01] VITALS (8 sets, daily range): BP systolic 105–145; BP diastolic 45–81; PULSE 71–90; RESP 16–18; TEMP 97.5–98.7; O2SAT 92–96
[2025-06-01 07:07] LABS: Hematocrit 33.9 % (36.0-46.0); Hemoglobin 11.8 g/dL (12.2-16.2); Mean Corpuscular Hemoglobin 31.8 pg (28.0-32.0); Mean Corpuscular Volume 91.6 fL (80.0-100.0)
[2025-06-01 07:26] LABS: Alanine Aminotransferase 11 U/L (7-40); Anion Gap 11 (5-15); BUN/Creatinine Ratio 16.4 (10.0-20.0); Blood Urea Nitrogen 10 mg/dL (9-23); Carbon Dioxide 28 mmol/L (20-31); Chloride 101 mmol/L (98-107); Glucose 94 mg/dL (74-106); Sodium 140 mmol/L (136-145)
[2025-06-01 07:27] LABS: Bilirubin, Total 0.7 mg/dL (0.2-1.0)
[2025-06-01 07:40] LABS: Albumin 3.1 g/dL (3.2-4.8); Alkaline Phosphatase 42 U/L (46-116); Calcium 7.8 mg/dL (8.7-10.4); Potassium 3.0 mmol/L (3.5-5.1); Total Protein 5.1 g/dL (5.7-8.2)
[2025-06-01 07:51] LABS: Total Cells Counted 100.0 (100)
--- NOTE | 2025-06-01 09:40 | DVHPN2 ---
Reviewed: Care Plan, H&P, Labs, Medications, Previous Orders, Radiology Changes from previous H/P or p: No Changes Gastrointestinal: Nausea, Vomiting, Abdominal Pain Objective Vitals Vital Signs Date Time Temp Pulse Resp B/P (MAP) Pulse Ox O2 Delivery O2 Flow Rate FiO2 06/01/25 05:00 97.5 85 16 113/60 (77) 92 97.5 05/31/25 20:00 Room Air* 0 21 Intake/Output Intake and Output 06/01/25 07:00 Intake Total 1350 ml Balance 1350 ml Intake Oral 1250 ml IV Total 100 ml # Voids 7 # Bowel Movements 1 Medications Current Medications Medications Dose Ordered Sig/Preet Route Start Time Stop Time Status Last Admin Dose Admin Ondansetron HCl 4 mg Q4HP PRN IV 05/27/25 16:15 Acetaminophen 650 mg Q6HP PRN PO 05/27/25 16:15 Atorvastatin Calcium 10 mg HS PO 05/27/25 22:00 05/31/25 21:26 10 MG Lactated Ringer's 1,000 ml @ 150 mls/hr Q6H40M IV 05/28/25 13:45 05/31/25 10:56 150 MLS/HR Acetaminophen 650 mg Q6HP PRN [place] 05/29/25 09:00 Pantoprazole Sodium 40 mg BID IV 05/29/25 10:00 05/31/25 22:39 40 MG Ceftriaxone Sodium 50 ml @ 100 mls/hr DAILY@09 IV 05/31/25 09:00 05/31/25 09:00 100 MLS/HR Metronidazole 100 ml @ 100 mls/hr Q8HR IV 05/30/25 14:00 06/01/25 06:15 100 MLS/HR Diphenhydramine HCl 25 mg Q6HR IV 05/30/25 12:00 06/01/25 06:06 25 MG Metoprolol Succinate 25 mg DAILY PO 06/01/25 10:00 Furosemide 20 mg DAILY IV 06/01/25 10:00 Enoxaparin Sodium 80 mg Q12HR SC 05/31/25 22:00 05/31/25 21:27 80 MG Laboratory Results Laboratory Tests 06/01/25 04:58 Chemistry Test 06/01/25 04:58 Albumin 3.1 g/dL (3.2-4.8) L Calcium Level 7.8 mg/dL (8.7-10.4) L Total Protein 5.1 g/dL (5.7-8.2) L LFT Test 06/01/25 04:58 Alanine Aminotransferase (ALT) 11 U/L (7-40) Alkaline Phosphatase 42 U/L (46-116) L Aspartate Amino Transferase (AST) 15 U/L (13-40) Total Bilirubin 0.7 mg/dL (0.2-1.0) Microbiology Microbiology Date/Time Source Procedure Growth Status 05/27/25 16:45 Blood Blood Culture - Preliminary NO GROWTH AFTER 72 HOURS OF INCUBATION. Resulted Labs and/or images reviewed: Labs reviewed by me, Image(s) reviewed by me Assessment/Plan Assessment/Plan Sepsis secondary to acute appendicitis status post diagnostic laparoscopy converted to exploratory laparotomy lysis of adhesions and appendectomy by surgeon Dr. Gannon, continue Zosyn, morphine for the pain Intractable abdominal pain likely due to acute appendicitis Multiple mildly dilated loops of small bowel in the lower abdomen with multiple apparent transition points likely due to SBO Hyperglycemia History of breast cancer status post partial mastectomy Hypercholesterolemia History of duodenal ulcer History of partial thyroidectomy NG tube clamped and liquid diet started per recommendation of surgeon Dr. Gannon GI prophylaxis: Pantoprazole Allergic rash possibly allergic to Zosyn, DC Zosyn start Rocephin and Flagyl, Benadryl Paroxysmal AFib with a RVR new diagnosis, placed on metoprolol XL and therapeutic Lovenox by Cardiology Recommended new PCP Dr Sarah Rule out Autoimmune disease as a cause of generalized rash: PIYUSH result pending Bilateral upper extremity swelling : rule out DVT, ultrasound ordered Time spent 50 minutes Advanced care planning time 20 minutes Patient is full code Plan discussed with: Patient My Orders Orders - NORMA HICKMAN MD Procedure Category Date Status Time 2 Gm Sodium Diet DIET 05/31/25 Transmitted Dinner Date of Service: Jun 01, 2025 Billing Provider: NORMA HICKMAN MD Common Visit Codes: [id number] CARE 30-74 MIN NORMA HICKMAN MD Jun 01, 2025 09:40
[2025-06-01] MEDS: FUROSEMIDE 20 MG/2 ML VIAL IV SCH (10:00)
--- NOTE | 2025-06-01 11:01 | DVH ---
Bilateral Upper Extremity Venous Duplex Date: 06/01/2025 10:00 AM Clinical History: Swelling bilateral arms rule out DVT Comparison: None Findings: Duplex Doppler evaluation of the venous systems of the right and left lower neck and upper extremitie s including color Doppler and spectral/pulsed waveform analysis was performed. RIGHT SIDE: The internal jugular vein demonstrates appropriate compressibility and waveform variability. The subclavian vein is patent on color Doppler evaluation without intraluminal thrombus and demonstra ethan waveform variability. The visualized portion of the brachiocephalic vein is patent on color Doppler evaluation without intr aluminal thrombus and demonstrates waveform variability. The axillary vein demonstrates appropriate compressibility and waveform variability. The brachial veins demonstrate appropriate compressibility and patency on Doppler evaluation. The basilic vein demonstrates appropriate compressibility and patency on Doppler evaluation. The cephalic vein demonstrates thrombus. LEFT SIDE: The internal jugular vein demonstrates appropriate compressibility and waveform variability. The subclavian vein is patent on color Doppler evaluation without intraluminal thrombus and demonstra ethan waveform variability. The visualized portion of the brachiocephalic vein is patent on color Doppler evaluation without intr aluminal thrombus and demonstrates waveform variability. The axillary vein demonstrates appropriate compressibility and waveform variability. The brachial veins demonstrate appropriate compressibility and patency on Doppler evaluation. The basilic vein demonstrates appropriate compressibility and patency on Doppler evaluation. The cephalic vein demonstrates appropriate compressibility and patency on Doppler evaluation. IMPRESSION: Cephalic vein thrombus right side. No left DVT. END IMPRESSION: If clinical concern/symptoms persist or worsen, short-interval follow-up study is suggested.
[2025-06-01] MEDS: METOPROLOL SUCCINATE XL 50 MG TAB PO SCH (11:02)
[2025-06-01 12:07] LABS: Anti-Nuclear Antibody Direct Negative (Negative)
[2025-06-02] VITALS (8 sets, daily range): BP systolic 98–144; BP diastolic 46–82; PULSE 72–76; RESP 15–18; TEMP 97.5–98.9; O2SAT 91–97
[2025-06-02 06:28] LABS: Hematocrit 31.9 % (36.0-46.0); Hemoglobin 11.0 g/dL (12.2-16.2); Mean Corpuscular Hemoglobin 31.7 pg (28.0-32.0); Mean Corpuscular Volume 91.6 fL (80.0-100.0); Nucleated Red Blood Cells % 0.0 %
[2025-06-02 06:38] LABS: Alanine Aminotransferase 22 U/L (7-40); Anion Gap 12 (5-15); BUN/Creatinine Ratio 20.0 (10.0-20.0); Bilirubin, Total 0.6 mg/dL (0.2-1.0); Blood Urea Nitrogen 10 mg/dL (9-23); Carbon Dioxide 28 mmol/L (20-31); Chloride 102 mmol/L (98-107); Glucose 91 mg/dL (74-106); Sodium 142 mmol/L (136-145)
[2025-06-02 06:41] LABS: Albumin 3.0 g/dL (3.2-4.8); Alkaline Phosphatase 40 U/L (46-116); Calcium 7.9 mg/dL (8.7-10.4); Potassium 3.0 mmol/L (3.5-5.1); Total Protein 4.9 g/dL (5.7-8.2)
--- NOTE | 2025-06-02 08:26 | DVHPN2 ---
Reviewed: Care Plan, H&P, Labs, Medications, Previous Orders, Radiology Changes from previous H/P or p: No Changes Gastrointestinal: Nausea, Vomiting, Abdominal Pain Objective Vitals Vital Signs Date Time Temp Pulse Resp B/P (MAP) Pulse Ox O2 Delivery O2 Flow Rate FiO2 06/02/25 05:00 98.5 75 15 98/50 (66) 91 98.5 06/01/25 20:00 Room Air* 0 21 Intake/Output Intake and Output 06/02/25 07:00 Intake Total 1120 ml Balance 1120 ml Intake Oral 820 ml IV Total 300 ml # Voids 6 # Bowel Movements 2 Medications Current Medications Medications Dose Ordered Sig/Preet Route Start Time Stop Time Status Last Admin Dose Admin Ondansetron HCl 4 mg Q4HP PRN IV 05/27/25 16:15 Acetaminophen 650 mg Q6HP PRN PO 05/27/25 16:15 Atorvastatin Calcium 10 mg HS PO 05/27/25 22:00 06/01/25 21:11 10 MG Lactated Ringer's 1,000 ml @ 150 mls/hr Q6H40M IV 05/28/25 13:45 05/31/25 10:56 150 MLS/HR Acetaminophen 650 mg Q6HP PRN [place] 05/29/25 09:00 Pantoprazole Sodium 40 mg BID IV 05/29/25 10:00 06/01/25 22:51 40 MG Ceftriaxone Sodium 50 ml @ 100 mls/hr DAILY@09 IV 05/31/25 09:00 06/01/25 10:56 100 MLS/HR Metronidazole 100 ml @ 100 mls/hr Q8HR IV 05/30/25 14:00 06/02/25 05:38 100 MLS/HR Diphenhydramine HCl 25 mg Q6HR IV 05/30/25 12:00 06/02/25 05:27 25 MG Metoprolol Succinate 25 mg DAILY PO 06/01/25 10:00 06/01/25 11:02 25 MG Furosemide 20 mg DAILY IV 06/01/25 10:00 Enoxaparin Sodium 80 mg Q12HR SC 05/31/25 22:00 06/01/25 21:11 80 MG Laboratory Results Laboratory Tests 06/02/25 05:09 Chemistry Test 06/02/25 05:09 Albumin 3.0 g/dL (3.2-4.8) L Calcium Level 7.9 mg/dL (8.7-10.4) L Total Protein 4.9 g/dL (5.7-8.2) L LFT Test 06/02/25 05:09 Alanine Aminotransferase (ALT) 22 U/L (7-40) Alkaline Phosphatase 40 U/L (46-116) L Aspartate Amino Transferase (AST) 26 U/L (13-40) Total Bilirubin 0.6 mg/dL (0.2-1.0) Microbiology Microbiology Date/Time Source Procedure Growth Status 05/27/25 16:45 Blood Blood Culture - Final NO GROWTH AFTER 5 DAYS OF INCUBATION. Complete Labs and/or images reviewed: Labs reviewed by me, Image(s) reviewed by me Assessment/Plan Assessment/Plan Sepsis secondary to acute appendicitis status post diagnostic laparoscopy converted to exploratory laparotomy lysis of adhesions and appendectomy by surgeon Dr. Gannon, continue Zosyn, morphine for the pain Intractable abdominal pain likely due to acute appendicitis Multiple mildly dilated loops of small bowel in the lower abdomen with multiple apparent transition points likely due to SBO Hyperglycemia History of breast cancer status post partial mastectomy Hypercholesterolemia History of duodenal ulcer History of partial thyroidectomy NG tube clamped and liquid diet started per recommendation of surgeon Dr. Gannon GI prophylaxis: Pantoprazole Allergic rash possibly allergic to Zosyn, DC Zosyn start Rocephin and Flagyl, Benadryl Paroxysmal AFib with RVR new diagnosis, placed on metoprolol XL and therapeutic Lovenox by Cardiology, echocardiogram result pending Recommended new PCP Dr Sarah Rule out Autoimmune disease as a cause of generalized rash: PIYUSH negative Right cephalic vein thrombosis: Continue Lovenox Time spent 50 minutes Advanced care planning time 20 minutes Patient is full code DEMARCO Heaton and at bedside Plan discussed with: Patient My Orders Orders - NORMA HICKMAN MD Procedure Category Date Status Time Bi Lat Upper Dvt US 06/01/25 Resulted 09:38 Date of Service: Jun 02, 2025 Billing Provider: NORMA HICKMAN MD Common Visit Codes: [id number] CARE 30-74 MIN NORMA HICKMAN MD Jun 02, 2025 08:26
[2025-06-02] MEDS: POTASSIUM EFFERVESENT TAB 25 MEQ PO ONE (09:14)
--- NOTE | 2025-06-02 17:17 | DVHPN2 ---
Consult Progress Note Subjective Other Systems: Remains in normal sinus rhythm on media monitor. No cardiac complaints at time of assessment. Objective vital signs Vital Sign Date Time Temp Pulse Resp B/P (MAP) Pulse Ox O2 Delivery O2 Flow Rate FiO2 06/02/25 13:00 97.5 74 16 144/82 (102) 97 97.5 06/02/25 08:00 Room Air* 0 21 Total Intake and Output 06/01/25 06/01/25 06/02/25 15:00 23:00 07:00 Intake Total 100 ml 420 ml 600 ml Balance 100 ml 420 ml 600 ml medications Current Medications Medications Dose Ordered Sig/Preet Route Start Time Stop Time Status Last Admin Dose Admin Ondansetron HCl 4 mg Q4HP PRN IV 05/27/25 16:15 Acetaminophen 650 mg Q6HP PRN PO 05/27/25 16:15 Atorvastatin Calcium 10 mg HS PO 05/27/25 22:00 06/01/25 21:11 10 MG Acetaminophen 650 mg Q6HP PRN [place] 05/29/25 09:00 Pantoprazole Sodium 40 mg BID IV 05/29/25 10:00 06/02/25 09:15 40 MG Ceftriaxone Sodium 50 ml @ 100 mls/hr DAILY@09 IV 05/31/25 09:00 06/02/25 09:19 100 MLS/HR Metronidazole 100 ml @ 100 mls/hr Q8HR IV 05/30/25 14:00 06/02/25 13:48 100 MLS/HR Diphenhydramine HCl 25 mg Q6HR IV 05/30/25 12:00 06/02/25 11:54 25 MG Metoprolol Succinate 25 mg DAILY PO 06/01/25 10:00 06/02/25 09:25 25 MG Furosemide 20 mg DAILY IV 06/01/25 10:00 06/02/25 09:25 20 MG Enoxaparin Sodium 80 mg Q12HR SC 05/31/25 22:00 06/02/25 09:26 80 MG Examination: GENERAL:Normal, LUNGS:Normal, CVS:Normal, SKIN:Abnormal (Generalized body rash), NEURO:Normal laboratory and microbiology Laboratory Tests 06/02/25 05:09 Test 06/02/25 05:09 Range/Units Serum Glucose 91 74-106 mg/dL Problem List/Assessment/Plan Problem List/Assessment/Plan Paroxysmal atrial fibrillation with RVR, stage IIIa, newly diagnosed Rule out structural heart disease Generalized non-pruritic rash Right cephalic vein thrombus Hypertension Dyslipidemia Hypokalemia Status post exploratory laparotomy, lysis of adhesions and appendectomy History breast cancer Obesity Plan/Recommendations (Dr. Venegas): The patient remains in normal sinus rhythm on media monitor. Continue therapeutic Lovenox, and beta-vivienne for rate control. Monitor and replete electrolytes as needed keeping potassium greater than four and magnesium greater than two. Patient noted to have lower extremity edema at time of assessment, we will order bilateral lower extremity ultrasound to rule out DVT. Pending transthoracic echocardiogram results. Continue close cardiac surveillance. Thank you for allowing us to care for this patient. Please call with any questions or concerns. This medical document was created using an electronic medical record system with voice recognition software and computerized dictation system. Although this document has been carefully reviewed, there might still be some phonetic and typographical errors. Occasional wrong-word or ``sound-alike substitutions may have occurred due to the inherent limitations of voice recognition software. These areas are purely typographical due to imperfections of the software programs and do not reflect any compromise in the patient's medical care. Please read the chart carefully and recognize, using context, where these substitutions have occurred. Plan discussed with: Patient, Spouse, Other (Bedside RN) Dietary Evaluation Review Comments: 1) Encourage optimal PO intake 2) Advance to cardiac diet when medically feasible 3) Follow-up with gastroenterology and cardiology 4) Continue to monitor I&O, labs, and skin integrity Expected Outcomes/Goals: 1) appetite and labs to improve 2) diet to advance 3) GI symptoms to resolve 4) f/u in 3-5 days Date of Service: Jun 02, 2025 Billing Provider: CHEYANNE MARCIAL Common Visit Codes: [id number] INP/OBS CARE(HIGH) CHEYANNE MARCIAL Jun 02, 2025 17:17
--- NOTE | 2025-06-02 18:40 | DVH ---
Bilateral lower extremity venous duplex Clinical History: bilateral lower extremity edema Comparison: US BI LAT UPPER DVT on DOS: 06/01/25 Technique: Duplex Doppler evaluation of the deep venous systems of both lower extremities from the common femora l veins to the popliteal veins including color Doppler and spectral/pulsed waveform analysis was perf ormed. Findings: RIGHT SIDE: The common femoral vein demonstrates appropriate compressibility and waveform variability. There is compressibility/patency of the great saphenous vein at the proximal thigh. The femoral vein demonstrates appropriate compressibility and waveform variability. The deep femoral vein demonstrates appropriate compressibility and waveform variability. The popliteal vein demonstrates appropriate compressibility and waveform variability. There is normal compressibility at the tibioperoneal trunk. LEFT SIDE: The common femoral vein demonstrates appropriate compressibility and waveform variability. There is compressibility/patency of the great saphenous vein at the proximal thigh. The femoral vein demonstrates appropriate compressibility and waveform variability. The deep femoral vein demonstrates appropriate compressibility and waveform variability. The popliteal vein demonstrates appropriate compressibility and waveform variability. There is normal compressibility at the tibioperoneal trunk. Impression: 1. No right or left femoropopliteal venous thrombosis.
[2025-06-03] VITALS (7 sets, daily range): BP systolic 106–135; BP diastolic 48–67; PULSE 67–86; RESP 16–18; TEMP 97.9–98.8; O2SAT 92–97
[2025-06-03] MEDS: DIGOXIN 0.125 MG TAB PO ONE (03:19)
[2025-06-03 06:44] LABS: Hematocrit 33.3 % (36.0-46.0); Hemoglobin 11.3 g/dL (12.2-16.2); Mean Corpuscular Hemoglobin 31.9 pg (28.0-32.0); Mean Corpuscular Volume 93.5 fL (80.0-100.0); Nucleated Red Blood Cells % 0.1 %
[2025-06-03 07:05] LABS: Anion Gap 11 (5-15); BUN/Creatinine Ratio 15.4 (10.0-20.0); Carbon Dioxide 29 mmol/L (20-31); Chloride 105 mmol/L (98-107); Glucose 91 mg/dL (74-106); Sodium 145 mmol/L (136-145)
[2025-06-03 07:06] LABS: Bilirubin, Total 0.5 mg/dL (0.2-1.0)
[2025-06-03 07:08] LABS: Alanine Aminotransferase 80 U/L (7-40); Albumin 3.0 g/dL (3.2-4.8); Alkaline Phosphatase 41 U/L (46-116); Blood Urea Nitrogen 8 mg/dL (9-23); Calcium 8.0 mg/dL (8.7-10.4); Potassium 3.3 mmol/L (3.5-5.1); Total Protein 5.0 g/dL (5.7-8.2)
--- NOTE | 2025-06-03 08:18 | ECG ---
[facility] Test Date: 2025-06-03 Test Time: 02:23:14 Pat Name: ALESSANDRO PACHECO Department: Respiratoy Room: 0216T B Gender: F Communications Equipment Operator: AT : 1950 Requested By: FINN BELTRAN Order Number: [id number] Reading MD: Festus Franklin Measurements Intervals [place] Rate: 118 P: 0 OR: 0 QRS: 13 QRSD: 86 T: -55 QT: 313 QTc: 439 Interpretive Statements Atrial fibrillation Nonspecific repol abnormality, diffuse leads Electronically Signed On 06-05-2025 19:45:39 PDT by Festus Franklin Please click the below link to view image of tracing.
--- NOTE | 2025-06-03 08:46 | DVHPN2 ---
Reviewed: Care Plan, H&P, Labs, Medications, Previous Orders, Radiology Changes from previous H/P or p: No Changes Gastrointestinal: Nausea, Vomiting, Abdominal Pain Objective Vitals Vital Signs Date Time Temp Pulse Resp B/P (MAP) Pulse Ox O2 Delivery O2 Flow Rate FiO2 06/03/25 05:00 98.8 86 18 125/67 (86) 94 98.8 06/02/25 20:00 Room Air* 0 21 Intake/Output Intake and Output 06/03/25 07:00 Intake Total 3250 ml Balance 3250 ml Intake Oral 3000 ml IV Total 250 ml # Voids 6 Medications Current Medications Medications Dose Ordered Sig/Preet Route Start Time Stop Time Status Last Admin Dose Admin Ondansetron HCl 4 mg Q4HP PRN IV 05/27/25 16:15 Acetaminophen 650 mg Q6HP PRN PO 05/27/25 16:15 Atorvastatin Calcium 10 mg HS PO 05/27/25 22:00 06/02/25 22:07 10 MG Acetaminophen 650 mg Q6HP PRN [place] 05/29/25 09:00 Pantoprazole Sodium 40 mg BID IV 05/29/25 10:00 06/02/25 22:07 40 MG Ceftriaxone Sodium 50 ml @ 100 mls/hr DAILY@09 IV 05/31/25 09:00 06/02/25 09:19 100 MLS/HR Metronidazole 100 ml @ 100 mls/hr Q8HR IV 05/30/25 14:00 06/02/25 22:07 100 MLS/HR Diphenhydramine HCl 25 mg Q6HR IV 05/30/25 12:00 06/03/25 06:00 25 MG Metoprolol Succinate 25 mg DAILY PO 06/01/25 10:00 06/02/25 09:25 25 MG Furosemide 20 mg DAILY IV 06/01/25 10:00 06/02/25 09:25 20 MG Enoxaparin Sodium 80 mg Q12HR SC 05/31/25 22:00 06/02/25 22:07 80 MG Laboratory Results Laboratory Tests 06/03/25 05:02 Chemistry Test 06/03/25 05:02 Albumin 3.0 g/dL (3.2-4.8) L Calcium Level 8.0 mg/dL (8.7-10.4) L Total Protein 5.0 g/dL (5.7-8.2) L LFT Test 06/03/25 05:02 Alanine Aminotransferase (ALT) 80 U/L (7-40) H Alkaline Phosphatase 41 U/L (46-116) L Aspartate Amino Transferase (AST) 126 U/L (13-40) H Total Bilirubin 0.5 mg/dL (0.2-1.0) Microbiology Microbiology Date/Time Source Procedure Growth Status 05/27/25 16:45 Blood Blood Culture - Final NO GROWTH AFTER 5 DAYS OF INCUBATION. Complete Labs and/or images reviewed: Labs reviewed by me, Image(s) reviewed by me Assessment/Plan Assessment/Plan Sepsis secondary to acute appendicitis status post diagnostic laparoscopy converted to exploratory laparotomy lysis of adhesions and appendectomy by surgeon Dr. Gannon, continue Zosyn, morphine for the pain Intractable abdominal pain likely due to acute appendicitis Multiple mildly dilated loops of small bowel in the lower abdomen with multiple apparent transition points likely due to SBO Hyperglycemia History of breast cancer status post partial mastectomy Hypercholesterolemia History of duodenal ulcer History of partial thyroidectomy NG tube clamped and liquid diet started per recommendation of surgeon Dr. Gannon GI prophylaxis: Pantoprazole Allergic rash possibly allergic to Zosyn, DC Zosyn start Rocephin and Flagyl, Benadryl Paroxysmal AFib with RVR new diagnosis, placed on metoprolol XL and therapeutic Lovenox by Cardiology, echocardiogram result pending Recommended new PCP Dr Sarah Rule out Autoimmune disease as a cause of generalized rash: PIYUSH negative Right cephalic vein thrombosis: Continue Lovenox Time spent 50 minutes Advanced care planning time 20 minutes Patient is full code DEMARCO Heaton and at bedside Plan discussed with: Patient Date of Service: Jun 03, 2025 Billing Provider: NORMA HICKMAN MD Common Visit Codes: [id number] CARE 30-74 MIN NORMA HICKMAN MD Jun 03, 2025 08:46
--- NOTE | 2025-06-03 11:39 | DVHPN2 ---
Consult Progress Note Subjective Other Systems: Patient had an event of atrial fibrillation with rapid ventricular response overnight. Now normal sinus rhythm at time of assessment. Objective vital signs Vital Sign Date Time Temp Pulse Resp B/P (MAP) Pulse Ox O2 Delivery O2 Flow Rate FiO2 06/03/25 09:56 84 146/70 06/03/25 09:00 97.9 18 95 97.9 06/02/25 20:00 Room Air* 0 21 Total Intake and Output 06/02/25 06/02/25 06/03/25 15:00 23:00 07:00 Intake Total 650 ml 2300 ml 300 ml Balance 650 ml 2300 ml 300 ml medications Current Medications Medications Dose Ordered Sig/Preet Route Start Time Stop Time Status Last Admin Dose Admin Ondansetron HCl 4 mg Q4HP PRN IV 05/27/25 16:15 Acetaminophen 650 mg Q6HP PRN PO 05/27/25 16:15 Atorvastatin Calcium 10 mg HS PO 05/27/25 22:00 06/02/25 22:07 10 MG Acetaminophen 650 mg Q6HP PRN [place] 05/29/25 09:00 Pantoprazole Sodium 40 mg BID IV 05/29/25 10:00 06/02/25 22:07 40 MG Ceftriaxone Sodium 50 ml @ 100 mls/hr DAILY@09 IV 05/31/25 09:00 06/02/25 09:19 100 MLS/HR Metronidazole 100 ml @ 100 mls/hr Q8HR IV 05/30/25 14:00 06/02/25 22:07 100 MLS/HR Diphenhydramine HCl 25 mg Q6HR IV 05/30/25 12:00 06/03/25 06:00 25 MG Metoprolol Succinate 25 mg DAILY PO 06/01/25 10:00 06/03/25 09:56 25 MG Furosemide 20 mg DAILY IV 06/01/25 10:00 06/02/25 09:25 20 MG Enoxaparin Sodium 80 mg Q12HR [place] 05/31/25 22:00 06/03/25 09:55 80 MG Al Hydrox/Mg Hydrox/Simethicone 30 ml Q12HR PO 06/03/25 10:00 Examination: GENERAL:Normal, LUNGS:Normal, CVS:Normal, SKIN:Abnormal (Generalized body rash), NEURO:Normal laboratory and microbiology Laboratory Tests 06/03/25 05:02 Test 06/03/25 05:02 Range/Units Serum Glucose 91 74-106 mg/dL Problem List/Assessment/Plan Problem List/Assessment/Plan Paroxysmal atrial fibrillation with RVR, stage IIIa, newly diagnosed Rule out structural heart disease Generalized non-pruritic rash Right cephalic vein thrombus Hypertension Dyslipidemia Hypokalemia Status post exploratory laparotomy, lysis of adhesions and appendectomy History breast cancer Obesity Plan/Recommendations (Dr. 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 Continue therapeutic Lovenox, and beta-vivienne for rate control. Monitor and replete electrolytes as needed keeping potassium greater than four and magnesium greater than two. Pending transthoracic echocardiogram results. Continue close cardiac surveillance. Thank you for allowing us to care for this patient. Please call with any questions or concerns. This medical document was created using an electronic medical record system with voice recognition software and computerized dictation system. Although this document has been carefully reviewed, there might still be some phonetic and typographical errors. Occasional wrong-word or ``sound-alike substitutions may have occurred due to the inherent limitations of voice recognition software. These areas are purely typographical due to imperfections of the software programs and do not reflect any compromise in the patient's medical care. Please read the chart carefully and recognize, using context, where these substitutions have occurred. Plan discussed with: Patient Dietary Evaluation Review Comments: 1) Encourage optimal PO intake 2) Advance to cardiac diet when medically feasible 3) Follow-up with gastroenterology and cardiology 4) Continue to monitor I&O, labs, and skin integrity Expected Outcomes/Goals: 1) appetite and labs to improve 2) diet to advance 3) GI symptoms to resolve 4) f/u in 3-5 days Date of Service: Jun 03, 2025 Billing Provider: CHEYANNE MARCIAL Common Visit Codes: [id number] INP/OBS CARE(HIGH) CHEYANNE MARCIAL Jun 03, 2025 11:39
[2025-06-03] MEDS: MAALOX PLUS or MAALOX 30 ML PO SCH (12:28)
[2025-06-03] MEDS: levoFLOXacin 500 MG TAB PO SCH (14:11)
[2025-06-03] MEDS: FUROSEMIDE 20 MG TAB PO SCH (14:11)
[2025-06-03] MEDS: metroNIDAZOLE 500 MG TAB PO SCH (15:26)
[2025-06-03] MEDS: POTASSIUM EFFERVESENT TAB 25 MEQ PO ONE (16:06)
[2025-06-03] MEDS: PANTOPRAZOLE 40 MG TAB PO SCH (17:32)
[2025-06-04] VITALS (8 sets, daily range): BP systolic 128–156; BP diastolic 56–78; PULSE 64–99; RESP 15–18; TEMP 97.6–99; O2SAT 94–98
[2025-06-04 06:46] LABS: Hematocrit 31.6 % (36.0-46.0); Hemoglobin 10.8 g/dL (12.2-16.2); Mean Corpuscular Hemoglobin 31.8 pg (28.0-32.0); Mean Corpuscular Volume 92.9 fL (80.0-100.0); Nucleated Red Blood Cells % 0.3 %
[2025-06-04 06:54] LABS: Anion Gap 9 (5-15); BUN/Creatinine Ratio 16.1 (10.0-20.0); Bilirubin, Total 0.4 mg/dL (0.2-1.0); Carbon Dioxide 30 mmol/L (20-31); Chloride 105 mmol/L (98-107); Glucose 82 mg/dL (74-106); Potassium 3.9 mmol/L (3.5-5.1); Sodium 144 mmol/L (136-145)
[2025-06-04 06:57] LABS: Alanine Aminotransferase 88 U/L (7-40); Albumin 3.0 g/dL (3.2-4.8); Alkaline Phosphatase 40 U/L (46-116); Blood Urea Nitrogen 9 mg/dL (9-23); Calcium 8.2 mg/dL (8.7-10.4); Total Protein 4.9 g/dL (5.7-8.2)
--- NOTE | 2025-06-04 08:52 | DVHPN2 ---
Reviewed: Care Plan, H&P, Labs, Medications, Previous Orders, Radiology Changes from previous H/P or p: No Changes Gastrointestinal: Nausea, Vomiting, Abdominal Pain Objective Vitals Vital Signs Date Time Temp Pulse Resp B/P (MAP) Pulse Ox O2 Delivery O2 Flow Rate FiO2 06/04/25 01:00 97.6 72 18 135/65 (88) 96 97.6 06/03/25 20:00 Room Air* 0 21 Intake/Output Intake and Output 06/04/25 07:00 Intake Total 1750 ml Output Total 1550 ml Balance 200 ml Intake Oral 1750 ml Output Urine Total 1550 ml # Voids 4 Medications Current Medications Medications Dose Ordered Sig/Preet Route Start Time Stop Time Status Last Admin Dose Admin Ondansetron HCl 4 mg Q4HP PRN IV 05/27/25 16:15 Acetaminophen 650 mg Q6HP PRN PO 05/27/25 16:15 Atorvastatin Calcium 10 mg HS PO 05/27/25 22:00 06/03/25 22:13 10 MG Acetaminophen 650 mg Q6HP PRN [place] 05/29/25 09:00 Metoprolol Succinate 25 mg DAILY PO 06/01/25 10:00 06/03/25 09:56 25 MG Enoxaparin Sodium 80 mg Q12HR SC 05/31/25 22:00 06/03/25 22:12 80 MG Al Hydrox/Mg Hydrox/Simethicone 30 ml Q12HR PO 06/03/25 10:00 06/04/25 00:45 30 ML Levofloxacin 500 mg DAILY PO 06/03/25 13:15 06/03/25 14:11 500 MG Metronidazole 500 mg Q8HR PO 06/03/25 14:00 06/04/25 05:40 500 MG Furosemide 40 mg DAILY PO 06/03/25 13:15 06/03/25 14:11 40 MG Pantoprazole Sodium 40 mg BID@0600,1700 PO 06/03/25 17:00 06/04/25 05:40 40 MG Diphenhydramine HCl 25 mg Q6HP PO 06/03/25 18:00 06/04/25 05:39 25 MG Laboratory Results Laboratory Tests 06/04/25 05:55 Chemistry Test 06/04/25 05:55 Albumin 3.0 g/dL (3.2-4.8) L Calcium Level 8.2 mg/dL (8.7-10.4) L Total Protein 4.9 g/dL (5.7-8.2) L LFT Test 06/04/25 05:55 Alanine Aminotransferase (ALT) 88 U/L (7-40) H Alkaline Phosphatase 40 U/L (46-116) L Aspartate Amino Transferase (AST) 93 U/L (13-40) H Total Bilirubin 0.4 mg/dL (0.2-1.0) Microbiology Microbiology Date/Time Source Procedure Growth Status 05/27/25 16:45 Blood Blood Culture - Final NO GROWTH AFTER 5 DAYS OF INCUBATION. Complete Labs and/or images reviewed: Labs reviewed by me, Image(s) reviewed by me Assessment/Plan Assessment/Plan Sepsis secondary to acute appendicitis status post diagnostic laparoscopy converted to exploratory laparotomy lysis of adhesions and appendectomy by surgeon Dr. Gannon, continue Zosyn, morphine for the pain Intractable abdominal pain likely due to acute appendicitis Multiple mildly dilated loops of small bowel in the lower abdomen with multiple apparent transition points likely due to SBO Hyperglycemia History of breast cancer status post partial mastectomy Hypercholesterolemia History of duodenal ulcer History of partial thyroidectomy NG tube clamped and liquid diet started per recommendation of surgeon Dr. Gannon GI prophylaxis: Pantoprazole Allergic rash possibly allergic to Zosyn, DC Zosyn start Rocephin and Flagyl, Benadryl Paroxysmal AFib with RVR new diagnosis, placed on metoprolol XL and therapeutic Lovenox by Cardiology, echocardiogram result pending Recommended new PCP Dr Sarah Rule out Autoimmune disease as a cause of generalized rash: PIYUSH negative Right cephalic vein thrombosis: Continue Lovenox Time spent 70 minutes Advanced care planning time 20 minutes Patient is full code DEMARCO Heaton and at bedside Poor IV access: PICC line nurse could not do the PICC line in the left arm because of previous left mastectomy, could not access the right arm because of extensive DVT, we will request Interventional radiologist for the non tunneled cath placement Plan discussed with: Patient My Orders Orders - NORMA HICKMAN MD Procedure Category Date Status Time Pt Request For Service PT 06/03/25 Logged 08:47 Alum & Mag PHA 06/03/25 In Process Hydrox-Simethicone 10:00 Levofloxacin Tablet PHA 06/03/25 In Process (Levaquin Tablet) 13:15 Metronidazole Tablet PHA 06/03/25 In Process (Flagyl Tablet) 14:00 Furosemide Tablet PHA 06/03/25 In Process (Lasix Tablet) 13:15 Pantoprazole Tablet PHA 06/03/25 In Process (Protonix Tablet) 17:00 Diphenhdramine PHA 06/03/25 In Process Capsule (Benadryl 18:00 Date of Service: Jun 04, 2025 Billing Provider: NORMA HICKMAN MD Common Visit Codes: [id number] CARE 30-74 MIN NORMA HICKMAN MD Jun 04, 2025 08:52
[2025-06-04] MEDS: LIDOCAINE 2%HCL (LOCAL ANESTH.) INJ 20ML MDV ONE (14:54)
[2025-06-04] MEDS: HEPARIN SODIUM (PORCINE) 5000 UNITS/ML 1ML VIAL ONE (14:54)
--- NOTE | 2025-06-04 15:41 | DVH ---
XY Insertion of Venous Cath, HISTORY: TUNNELED CENTRAL LINE PLACEMENT PROCEDURE: Informed consent was obtained. The patient was placed supine on the interventional table. A limited localization ultrasound of the left neck base was obtained. The right neck base and upper c hest were prepped with chlorhexidine which was allowed to dry and draped in the usual sterile fashion . Time out was performed. The skin and the soft tissues were infiltrated with 1% Lidocaine . With salvador l-time ultrasound guidance, the internal jugular vein was accessed with a micropuncture kit, and an i mage documenting patency was recorded to PACS. A subcutaneous tunneled tract was created from the rig ht upper chest to the venotomy site. A 5 Azeri dual lumen power line, cut to 24 cm long catheter was advanced through the tunneled tract. Fluoroscopy was used to advance a guidewire through the internal jugular vein into the inferior vena cava. 6 Azeri peel-away sheath was introduced, though which was advanced the catheter into the SVC. The catheter tip position was confirmed with fluoroscopy. There was satisfactory flow in both lumens. The catheter lumens were flushed with saline and heparin was left indwelling in the catheter. A post -procedure image of the chest was obtained. The neck incision site was closed with a Dermabond and dr ciriloed sterilely. The catheter was sutured at the skin surface and exit site also dressed sterilely. N o immediate complication was identified. DAP 102 FLUOROSCOPY TIME: 3.2 minutes. FINDINGS: Widely patent left IJV. Post procedure image demonstrates smooth course of the powerline ca theter with the tip in the SVC. IMPRESSION: Placement of 5 bhutanese dual lumen Powerline, 24 cm long catheter through left internal jugular vein. Plan: Ok to use. Please contact IR for removal when no longer needed.
[2025-06-05] VITALS (8 sets, daily range): BP systolic 103–126; BP diastolic 51–68; PULSE 61–73; RESP 17–18; TEMP 97.7–99; O2SAT 93–98
[2025-06-05] MEDS: METOPROLOL TARTRATE 25 MG TAB PO SCH (03:00)
[2025-06-05 07:05] LABS: Hematocrit 32.6 % (36.0-46.0); Hemoglobin 10.9 g/dL (12.2-16.2); Mean Corpuscular Hemoglobin 31.7 pg (28.0-32.0); Mean Corpuscular Volume 95.0 fL (80.0-100.0); Nucleated Red Blood Cells % 0.0 %
[2025-06-05 07:31] LABS: Anion Gap 9 (5-15); BUN/Creatinine Ratio 15.0 (10.0-20.0); Bilirubin, Total 0.3 mg/dL (0.2-1.0); Blood Urea Nitrogen 9 mg/dL (9-23); Carbon Dioxide 29 mmol/L (20-31); Chloride 105 mmol/L (98-107); Potassium 3.8 mmol/L (3.5-5.1); Sodium 143 mmol/L (136-145)
[2025-06-05 07:33] LABS: Alanine Aminotransferase 75 U/L (7-40); Albumin 2.8 g/dL (3.2-4.8); Alkaline Phosphatase 40 U/L (46-116); Calcium 8.1 mg/dL (8.7-10.4); Glucose 120 mg/dL (74-106); Total Protein 4.6 g/dL (5.7-8.2)
--- NOTE | 2025-06-05 09:30 | DVHPN2 ---
Reviewed: Care Plan, H&P, Labs, Medications, Previous Orders, Radiology Changes from previous H/P or p: No Changes Gastrointestinal: Nausea, Vomiting, Abdominal Pain Objective Vitals Vital Signs Date Time Temp Pulse Resp B/P (MAP) Pulse Ox O2 Delivery O2 Flow Rate FiO2 06/05/25 05:00 66 118/68 06/05/25 05:00 98.7 17 94 98.7 06/04/25 20:00 Room Air* 0 21 Intake/Output Intake and Output 06/05/25 07:00 Intake Total 3050 ml Output Total 3750 ml Balance -700 ml Intake Oral 3050 ml Output Urine Total 3750 ml # Bowel Movements 2 Medications Current Medications Medications Dose Ordered Sig/Preet Route Start Time Stop Time Status Last Admin Dose Admin Ondansetron HCl 4 mg Q4HP PRN IV 05/27/25 16:15 Acetaminophen 650 mg Q6HP PRN PO 05/27/25 16:15 Atorvastatin Calcium 10 mg HS PO 05/27/25 22:00 06/04/25 22:08 10 MG Acetaminophen 650 mg Q6HP PRN [place] 05/29/25 09:00 Enoxaparin Sodium 80 mg Q12HR SC 05/31/25 22:00 06/04/25 22:09 80 MG Al Hydrox/Mg Hydrox/Simethicone 30 ml Q12HR PO 06/03/25 10:00 06/04/25 22:08 30 ML Levofloxacin 500 mg DAILY PO 06/03/25 13:15 06/04/25 09:58 500 MG Metronidazole 500 mg Q8HR PO 06/03/25 14:00 06/05/25 05:35 500 MG Furosemide 40 mg DAILY PO 06/03/25 13:15 06/04/25 09:56 40 MG Pantoprazole Sodium 40 mg BID@0600,1700 PO 06/03/25 17:00 06/05/25 05:35 40 MG Diphenhydramine HCl 25 mg Q6HP PO 06/03/25 18:00 06/05/25 05:35 25 MG Metoprolol Tartrate 25 mg BID PO 06/05/25 03:00 06/05/25 03:00 25 MG Laboratory Results Laboratory Tests 06/05/25 06:28 Chemistry Test 06/05/25 06:28 Albumin 2.8 g/dL (3.2-4.8) L Calcium Level 8.1 mg/dL (8.7-10.4) L Total Protein 4.6 g/dL (5.7-8.2) L LFT Test 06/05/25 06:28 Alanine Aminotransferase (ALT) 75 U/L (7-40) H Alkaline Phosphatase 40 U/L (46-116) L Aspartate Amino Transferase (AST) 57 U/L (13-40) H Total Bilirubin 0.3 mg/dL (0.2-1.0) Microbiology Microbiology Date/Time Source Procedure Growth Status 05/27/25 16:45 Blood Blood Culture - Final NO GROWTH AFTER 5 DAYS OF INCUBATION. Complete Labs and/or images reviewed: Labs reviewed by me, Image(s) reviewed by me Assessment/Plan Assessment/Plan Sepsis secondary to acute appendicitis status post diagnostic laparoscopy converted to exploratory laparotomy lysis of adhesions and appendectomy by surgeon Dr. Gannon, continue Zosyn, morphine for the pain Intractable abdominal pain likely due to acute appendicitis Multiple mildly dilated loops of small bowel in the lower abdomen with multiple apparent transition points likely due to SBO Hyperglycemia History of breast cancer status post partial mastectomy Hypercholesterolemia History of duodenal ulcer History of partial thyroidectomy NG tube clamped and liquid diet started per recommendation of surgeon Dr. Gannon GI prophylaxis: Pantoprazole Allergic rash possibly allergic to Zosyn, DC Zosyn start Rocephin and Flagyl, Benadryl Paroxysmal AFib with RVR new diagnosis, placed on metoprolol XL and therapeutic Lovenox by Cardiology, echocardiogram result pending Recommended new PCP Dr Sarah Rule out Autoimmune disease as a cause of generalized rash: PIYUSH negative Right cephalic vein thrombosis: Continue Lovenox Time spent 70 minutes Advanced care planning time 20 minutes Patient is full code RN Tiffanie and at bedside Status post tunneled central line placement by radiologist Plan discussed with: Patient Date of Service: Jun 05, 2025 Billing Provider: NORMA HICKMAN MD Common Visit Codes: [id number] CARE 30-74 MIN NORMA HICKMAN MD Jun 05, 2025 09:30
--- NOTE | 2025-06-05 16:08 | DVHSR ---
APPROVED REPORT EXAM: Two-dimensional and M-mode echocardiogram with Doppler and color Doppler. Blood Pressure: 113/60 mmHg INDICATION TACHYCARDIA RISK FACTORS Height: 67, Weight: 178 DIMENSIONS LVDd4.6 (3.8-5.7cm)LA (2D)3.7 (1.9-4.0cm)Aortic Root3.3 (2.0-3.7cm) LVDs2.8 (2.5-4.0cm)LA (MM) (1.9-4.0cm)Aortic Cusp Exc1.2 (1.5-2.0cm) EF (%) 71.0 (55-70%)Rt. Atrium3.7 (1.9-4.0cm)Asc. Aorta cm Mitral Valve MitralMitral Stenosis E wave0.81m/sMV Mean GR.mmHg A wave0.89m/sMV Peak GR.128mmHg E/A ratio0.92D MVAcm2 DECEL [id number] 1/2 [id number] IVRTmsDop MVA3.79cm2 Aortic Valve Aortic ValveAortic Stenosis V11.60m/[place] Mean GR.21mmHg V23.04m/[place] Peak GR.37mmHg LVOT Diameter1.8 (1.8-2.4cm)Doppler AVA1.34cm2 Pulmonic Valve V21.03m/s Tricuspid Valve TR Velocity2.74m/s [id number] Other Information Technically limited study due to unable to do sub view. Patient has an abdominal binder on. Conclusion MILD LVH AND MILD LV DIASTOLIC DYSFUNCTION LV EF IS 65% HEAVILY CALCIFIED AORTIC LEAFLETS PEAK GRADIENT ACROSS AORTIC VALVE IS 38 MM OF HG AND MEAN GRADIENT IS 21 MM OF HG AORTIC VALVE AREA IS ONLY 1.3 CM SQUARE MODERATE DEGREE AORTIC SENOSIS MILD MR NORMAL TV ,PV AND MV NO EFFUSION
--- NOTE | 2025-06-05 17:32 | DVHPN2 ---
Subjective No cardiac events reported Currently on sinus rhythm Reviewed: Care Plan, H&P, Labs, Medications, Previous Orders, Radiology Changes from previous H/P or p: No Changes Gastrointestinal: Nausea, Vomiting, Abdominal Pain Objective Vitals Vital Signs Date Time Temp Pulse Resp B/P (MAP) Pulse Ox O2 Delivery O2 Flow Rate FiO2 06/05/25 13:00 97.7 69 18 124/66 (85) 97 97.7 06/05/25 08:00 Room Air* 0 21 Intake/Output Intake and Output 06/05/25 07:00 Intake Total 3050 ml Output Total 3750 ml Balance -700 ml Intake Oral 3050 ml Output Urine Total 3750 ml # Bowel Movements 2 Medications Current Medications Medications Dose Ordered Sig/Preet Route Start Time Stop Time Status Last Admin Dose Admin Ondansetron HCl 4 mg Q4HP PRN IV 05/27/25 16:15 Acetaminophen 650 mg Q6HP PRN PO 05/27/25 16:15 Atorvastatin Calcium 10 mg HS PO 05/27/25 22:00 06/04/25 22:08 10 MG Acetaminophen 650 mg Q6HP PRN [place] 05/29/25 09:00 Enoxaparin Sodium 80 mg Q12HR SC 05/31/25 22:00 06/05/25 09:47 80 MG Al Hydrox/Mg Hydrox/Simethicone 30 ml Q12HR PO 06/03/25 10:00 06/05/25 09:47 30 ML Levofloxacin 500 mg DAILY PO 06/03/25 13:15 06/05/25 09:47 500 MG Metronidazole 500 mg Q8HR PO 06/03/25 14:00 06/05/25 14:05 500 MG Furosemide 40 mg DAILY PO 06/03/25 13:15 06/04/25 09:56 40 MG Pantoprazole Sodium 40 mg BID@0600,1700 PO 06/03/25 17:00 06/05/25 05:35 40 MG Diphenhydramine HCl 25 mg Q6HP PO 06/03/25 18:00 06/05/25 12:15 25 MG Metoprolol Tartrate 25 mg BID PO 06/05/25 03:00 06/05/25 03:00 25 MG Laboratory Results Laboratory Tests 06/05/25 06:28 Chemistry Test 06/05/25 06:28 Albumin 2.8 g/dL (3.2-4.8) L Calcium Level 8.1 mg/dL (8.7-10.4) L Total Protein 4.6 g/dL (5.7-8.2) L LFT Test 06/05/25 06:28 Alanine Aminotransferase (ALT) 75 U/L (7-40) H Alkaline Phosphatase 40 U/L (46-116) L Aspartate Amino Transferase (AST) 57 U/L (13-40) H Total Bilirubin 0.3 mg/dL (0.2-1.0) Microbiology Microbiology Date/Time Source Procedure Growth Status 05/27/25 16:45 Blood Blood Culture - Final NO GROWTH AFTER 5 DAYS OF INCUBATION. Complete Assessment/Plan Assessment/Plan Paroxysmal atrial fibrillation with RVR, stage IIIa, newly diagnosed Rule out structural heart disease Generalized non-pruritic rash Right cephalic vein thrombus Hypertension Dyslipidemia Hypokalemia Status post exploratory laparotomy, lysis of adhesions and appendectomy History breast cancer Obesity Plan/Recommendations (Dr. Ramsay): 06/05/25 - ECHO revealed EF 65%, moderate aortic stenosis. The patient remains in normal sinus rhythm on monitor and storage bin tender. Continue therapeutic Lovenox, and beta-vivienne for rate control. Monitor and replete electrolytes as needed keeping potassium greater than four and magnesium greater than two. Pending transthoracic echocardiogram results. Continue close cardiac surveillance. Thank you for allowing us to care for this patient. Please call with any questions or concerns. This medical document was created using an electronic medical record system with voice recognition software and computerized dictation system. Although this document has been carefully reviewed, there might still be some phonetic and typographical errors. Occasional wrong-word or ``sound-alike substitutions may have occurred due to the inherent limitations of voice recognition software. These areas are purely typographical due to imperfections of the software programs and do not reflect any compromise in the patient's medical care. Please read the chart carefully and recognize, using context, where these substitutions have occurred. Plan discussed with: Patient Plan discussed with: Patient Date of Service: Jun 05, 2025 Billing Provider: CHAD RAMSAY MD Common Visit Codes: NOT BILLABLE Consultation Codes: [id number] CONSULT <45MIN NORI TOBIAS CORPORATE SECRETARY Jun 05, 2025 17:32
[2025-06-06] VITALS (8 sets, daily range): BP systolic 108–139; BP diastolic 54–81; PULSE 53–73; RESP 12–18; TEMP 97.7–99.4; O2SAT 94–98
[2025-06-06 06:38] LABS: Hematocrit 32.7 % (36.0-46.0); Hemoglobin 11.5 g/dL (12.2-16.2); Mean Corpuscular Hemoglobin 32.6 pg (28.0-32.0); Mean Corpuscular Volume 93.0 fL (80.0-100.0); Nucleated Red Blood Cells % 0.1 %
[2025-06-06 06:58] LABS: Albumin 3.4 g/dL (3.2-4.8); Alkaline Phosphatase 47 U/L (46-116); Anion Gap 9 (5-15); BUN/Creatinine Ratio 18.8 (10.0-20.0); Bilirubin, Total 0.3 mg/dL (0.2-1.0); Blood Urea Nitrogen 12 mg/dL (9-23); Carbon Dioxide 30 mmol/L (20-31); Chloride 105 mmol/L (98-107); Glucose 88 mg/dL (74-106); Potassium 3.8 mmol/L (3.5-5.1); Sodium 144 mmol/L (136-145)
[2025-06-06 06:59] LABS: Alanine Aminotransferase 71 U/L (7-40); Calcium 8.3 mg/dL (8.7-10.4); Total Protein 5.5 g/dL (5.7-8.2)
--- NOTE | 2025-06-06 09:29 | DVHPN2 ---
Reviewed: Care Plan, H&P, Labs, Medications, Previous Orders, Radiology Changes from previous H/P or p: No Changes Gastrointestinal: Nausea, Vomiting, Abdominal Pain Objective Vitals Vital Signs Date Time Temp Pulse Resp B/P (MAP) Pulse Ox O2 Delivery O2 Flow Rate FiO2 06/06/25 08:37 98.1 61 12 121/66 (84) 98 98.1 06/05/25 20:00 Room Air* 0 21 Intake/Output Intake and Output 06/06/25 07:00 Intake Total 4460 ml Output Total 6010 ml Balance -1550 ml Intake Oral 4460 ml Output Urine Total 6010 ml # Bowel Movements 1 Medications Current Medications Medications Dose Ordered Sig/Preet Route Start Time Stop Time Status Last Admin Dose Admin Ondansetron HCl 4 mg Q4HP PRN IV 05/27/25 16:15 Acetaminophen 650 mg Q6HP PRN PO 05/27/25 16:15 Atorvastatin Calcium 10 mg HS PO 05/27/25 22:00 06/05/25 21:18 10 MG Acetaminophen 650 mg Q6HP PRN [place] 05/29/25 09:00 Enoxaparin Sodium 80 mg Q12HR SC 05/31/25 22:00 06/05/25 21:18 80 MG Al Hydrox/Mg Hydrox/Simethicone 30 ml Q12HR PO 06/03/25 10:00 06/05/25 21:17 30 ML Levofloxacin 500 mg DAILY PO 06/03/25 13:15 06/05/25 09:47 500 MG Metronidazole 500 mg Q8HR PO 06/03/25 14:00 06/06/25 05:23 500 MG Furosemide 40 mg DAILY PO 06/03/25 13:15 06/04/25 09:56 40 MG Pantoprazole Sodium 40 mg BID@0600,1700 PO 06/03/25 17:00 06/06/25 05:24 40 MG Diphenhydramine HCl 25 mg Q6HP PO 06/03/25 18:00 06/06/25 05:24 25 MG Metoprolol Tartrate 25 mg BID PO 06/05/25 03:00 06/05/25 21:18 25 MG Laboratory Results Laboratory Tests 06/06/25 05:57 Chemistry Test 06/06/25 05:57 Albumin 3.4 g/dL (3.2-4.8) Calcium Level 8.3 mg/dL (8.7-10.4) L Total Protein 5.5 g/dL (5.7-8.2) L LFT Test 06/06/25 05:57 Alanine Aminotransferase (ALT) 71 U/L (7-40) H Alkaline Phosphatase 47 U/L (46-116) Aspartate Amino Transferase (AST) 42 U/L (13-40) H Total Bilirubin 0.3 mg/dL (0.2-1.0) Microbiology Microbiology Date/Time Source Procedure Growth Status 05/27/25 16:45 Blood Blood Culture - Final NO GROWTH AFTER 5 DAYS OF INCUBATION. Complete Labs and/or images reviewed: Labs reviewed by me, Image(s) reviewed by me Assessment/Plan Assessment/Plan Sepsis secondary to acute appendicitis status post diagnostic laparoscopy converted to exploratory laparotomy lysis of adhesions and appendectomy by surgeon Dr. Gannon, continue Zosyn, morphine for the pain Intractable abdominal pain likely due to acute appendicitis Multiple mildly dilated loops of small bowel in the lower abdomen with multiple apparent transition points likely due to SBO Hyperglycemia History of breast cancer status post partial mastectomy Hypercholesterolemia History of duodenal ulcer History of partial thyroidectomy NG tube clamped and liquid diet started per recommendation of surgeon Dr. Gannon GI prophylaxis: Pantoprazole Allergic rash possibly allergic to Zosyn, DC Zosyn start Rocephin and Flagyl, Benadryl, improving Paroxysmal AFib with RVR new diagnosis, placed on metoprolol XL and therapeutic Lovenox by Cardiology, DC Lovenox, transition to Eliquis, echocardiogram shows 65 % ejection fraction and heavily calcified aortic valve leaflets Recommended new PCP Dr Sarah Rule out Autoimmune disease as a cause of generalized rash: PIYUSH negative Right cephalic vein thrombosis: Continue Lovenox Time spent 70 minutes Advanced care planning time 20 minutes Patient is full code RN and at bedside Status post tunneled central line placement by radiologist Plan discussed with: Patient Date of Service: Jun 06, 2025 Billing Provider: NORMA HICKMAN MD Common Visit Codes: [id number] CARE 30-74 MIN NORMA HICKMAN MD Jun 06, 2025 09:29
--- NOTE | 2025-06-06 09:49 | ECG ---
[facility] Test Date: 2025-06-05 Test Time: 02:07:39 Pat Name: ALESSANDRO PACHECO Department: Respiratoy Room: 0216T B Gender: F Senior Planning Manager: ovi : [id number] Requested By: ZANE VASQUEZ Order Number: [id number] Reading MD: Festus Franklin Measurements Intervals [place] Rate: 136 P: 0 CO: 0 QRS: 33 QRSD: 84 T: -25 QT: 303 QTc: 456 Interpretive Statements Atrial fibrillation Repolarization abnormality, prob rate related Electronically Signed On 06-08-2025 15:04:54 PDT by Festus Franklin Please click the below link to view image of tracing.
[2025-06-06] MEDS: APIXABAN 5 MG TAB PO SCH (10:00)
[2025-06-06] MEDS ORDERED: APIXABAN 5 MG TAB PO SCH (10:00)
--- NOTE | 2025-06-06 11:48 | DVHPN2 ---
Subjective No cardiac events reported Currently on sinus rhythm Reviewed: Care Plan, H&P, Labs, Medications, Previous Orders, Radiology Changes from previous H/P or p: No Changes Gastrointestinal: Nausea, Vomiting, Abdominal Pain Objective Vitals Vital Signs Date Time Temp Pulse Resp B/P (MAP) Pulse Ox O2 Delivery O2 Flow Rate FiO2 06/06/25 10:23 61 121/66 06/06/25 08:37 98.1 12 98 98.1 06/05/25 20:00 Room Air* 0 21 Intake/Output Intake and Output 06/06/25 07:00 Intake Total 4460 ml Output Total 6010 ml Balance -1550 ml Intake Oral 4460 ml Output Urine Total 6010 ml # Bowel Movements 1 Medications Current Medications Medications Dose Ordered Sig/Preet Route Start Time Stop Time Status Last Admin Dose Admin Ondansetron HCl 4 mg Q4HP PRN IV 05/27/25 16:15 Acetaminophen 650 mg Q6HP PRN PO 05/27/25 16:15 Atorvastatin Calcium 10 mg HS PO 05/27/25 22:00 06/05/25 21:18 10 MG Acetaminophen 650 mg Q6HP PRN [place] 05/29/25 09:00 Al Hydrox/Mg Hydrox/Simethicone 30 ml Q12HR PO 06/03/25 10:00 06/06/25 10:23 30 ML Levofloxacin 500 mg DAILY PO 06/03/25 13:15 06/06/25 10:23 500 MG Metronidazole 500 mg Q8HR PO 06/03/25 14:00 06/06/25 05:23 500 MG Furosemide 40 mg DAILY PO 06/03/25 13:15 06/06/25 10:22 40 MG Pantoprazole Sodium 40 mg BID@0600,1700 PO 06/03/25 17:00 06/06/25 05:24 40 MG Diphenhydramine HCl 25 mg Q6HP PO 06/03/25 18:00 06/06/25 05:24 25 MG Metoprolol Tartrate 25 mg BID PO 06/05/25 03:00 06/06/25 10:23 25 MG Apixaban 10 mg BID PO 06/06/25 09:45 06/13/25 10:00 06/06/25 10:23 10 MG Laboratory Results Laboratory Tests 06/06/25 05:57 Chemistry Test 06/06/25 05:57 Albumin 3.4 g/dL (3.2-4.8) Calcium Level 8.3 mg/dL (8.7-10.4) L Total Protein 5.5 g/dL (5.7-8.2) L LFT Test 06/06/25 05:57 Alanine Aminotransferase (ALT) 71 U/L (7-40) H Alkaline Phosphatase 47 U/L (46-116) Aspartate Amino Transferase (AST) 42 U/L (13-40) H Total Bilirubin 0.3 mg/dL (0.2-1.0) Microbiology Microbiology Date/Time Source Procedure Growth Status 05/27/25 16:45 Blood Blood Culture - Final NO GROWTH AFTER 5 DAYS OF INCUBATION. Complete Assessment/Plan Assessment/Plan Paroxysmal atrial fibrillation with RVR, stage IIIa, newly diagnosed Rule out structural heart disease Generalized non-pruritic rash Right cephalic vein thrombus Hypertension Dyslipidemia Hypokalemia Status post exploratory laparotomy, lysis of adhesions and appendectomy History breast cancer Obesity Plan/Recommendations (Dr. Ramsay): 06/06/25 --remained sinus rhythm. Continue with beta vivienne and Eliquis. Follow-up with the Cardiology Dr. Ramsay on discharge 06/05/25 - ECHO revealed EF 65%, moderate aortic stenosis. The patient remains in normal sinus rhythm on seed potato arranger. Continue therapeutic Lovenox, and beta-vivienne for rate control. Monitor and replete electrolytes as needed keeping potassium greater than four and magnesium greater than two. Pending transthoracic echocardiogram results. Continue close cardiac surveillance. Thank you for allowing us to care for this patient. Please call with any questions or concerns. This medical document was created using an electronic medical record system with voice recognition software and computerized dictation system. Although this document has been carefully reviewed, there might still be some phonetic and typographical errors. Occasional wrong-word or ``sound-alike substitutions may have occurred due to the inherent limitations of voice recognition software. These areas are purely typographical due to imperfections of the software programs and do not reflect any compromise in the patient's medical care. Please read the chart carefully and recognize, using context, where these substitutions have occurred. Plan discussed with: Patient Plan discussed with: Patient Date of Service: Jun 06, 2025 Billing Provider: CHAD RAMSAY MD Common Visit Codes: CONSULT ONLY Consultation Codes: [id number] CONSULT <45MIN NROI TOBIAS [facility] Jun 06, 2025 11:48
[2025-06-06 18:39] LABS: COVID19 ANTIGEN SOFIA FIA NEGATIVE (NEGATIVE)
[2025-06-07 05:00] VITALS: BP 153/71; PULSE 59; RESP 16; TEMP 98.8; O2SAT 94
[2025-06-07 08:00] VITALS: PULSE 59
[2025-06-07 09:00] VITALS: BP 127/59; PULSE 54; RESP 12; TEMP 97.6; O2SAT 97
--- NOTE | 2025-06-07 10:05 | DVHDS2 ---
Discharge Summary Date of Admission May 27, 2025 at 16:04 Date of Discharge: Jun 07, 2025 Admitting Diagnosis Abdominal pain Wounds: Laparotomy appendectomy Labs/Diagnostic Data: Laboratory Results Test 06/06/25 17:40 06/06/25 05:57 06/05/25 06:28 06/02/25 05:09 SARS-CoV-2 Antigen (Rapid) Negative (NEGATIVE) White Blood Count 9.6 10^3/uL (4.4-10.8) Red Blood Count 3.52 10^6/uL (4.0-5.20) Hemoglobin 11.5 g/dL (12.2-16.2) Hematocrit 32.7 % (36.0-46.0) Mean Corpuscular Volume 93.0 fL (80.0-100.0) Mean Corpuscular Hemoglobin 32.6 pg (28.0-32.0) Mean Corpuscular Hemoglobin Concent 35.1 g/dL (32.0-36.0) Red Cell Distribution Width 14.0 % (11.8-14.3) Platelet Count 214 10^3/uL (140-450) Mean Platelet Volume 8.6 fL (6.9-10.8) Neutrophils (%) (Auto) 59.1 % (37.0-80.0) Lymphocytes (%) (Auto) 30.5 % (10.0-50.0) Monocytes (%) (Auto) 5.3 % (0.0-12.0) Eosinophils (%) (Auto) 4.2 % (0.0-7.0) Basophils (%) (Auto) 0.9 % (0.0-2.0) Neutrophils # (Auto) 5.7 10 ^3/uL (1.6-8.6) Lymphocytes # (Auto) 2.9 10 ^3/uL (0.4-5.4) Monocytes # (Auto) 0.5 10 ^3/uL (0-1.3) Eosinophils # (Auto) 0.4 10 ^3/uL (0-0.8) Basophils # (Auto) 0.1 10 ^3/uL (0-0.2) Nucleated Red Blood Cells 0.1 % Sodium Level 144 mmol/L (136-145) Potassium Level 3.8 mmol/L (3.5-5.1) Chloride Level 105 mmol/L (98-107) Carbon Dioxide Level 30 mmol/L (20-31) Anion Gap 9 (5-15) Blood Urea Nitrogen 12 mg/dL (9-23) Creatinine 0.64 mg/dL (0.550-1.02) Glomerular Filtration Rate Calc 93 mL/min (>90) BUN/Creatinine Ratio 18.8 (10.0-20.0) Serum Glucose 88 mg/dL (74-106) Calcium Level 8.3 mg/dL (8.7-10.4) Total Bilirubin 0.3 mg/dL (0.2-1.0) Aspartate Amino Transferase (AST) 42 U/L (13-40) Alanine Aminotransferase (ALT) 71 U/L (7-40) Alkaline Phosphatase 47 U/L (46-116) Total Protein 5.5 g/dL (5.7-8.2) Albumin 3.4 g/dL (3.2-4.8) Troponin I High Sensitivity 5 ng/L (</=34) B-Type Natriuretic Peptide 66.20 pg/mL (0-100) Test 06/01/25 04:58 05/31/25 11:45 05/31/25 07:14 05/27/25 16:45 Differential Total Cells Counted 100.0 (100) Neutrophils % (Manual) 81 (37.0-80.0) Band Neutrophils % (Manual) 9 Lymphocytes % (Manual) 4 (10.0-50.0) Monocytes % (Manual) 2 (0-12) Eosinophils % (Manual) 4 (0-7) Basophils % (Manual) 0 (0.0-2.0) Metamyelocytes % (manual) 0 Myelocytes % (Manual) 0 Promyelocytes % (Manual) 0 Blast Cells % (Manual) 0 Reactive Lymphocytes 0 Platelet Estimate Adequate Anti-Nuclear Antibody Screen Negative (Negative) Hemoglobin A1c 5.5 % A1C (<5.7) Magnesium Level 2.1 mg/dL (1.6-2.6) Triglycerides Level 117 mg/dL (< 150) Cholesterol Level 129 mg/dL (< 200) LDL Cholesterol 72 mg/dL (< 100) HDL Cholesterol 38 mg/dL (40-59) Thyroid Stimulating Hormone (TSH) 2.37 uIU/mL (0.55-4.78) Lactic Acid Level 2.5 mmol/L (0.4-2.0) Test 05/27/25 14:11 Prothrombin Time 10.9 sec (9.3-11.8) Prothrombin Time INR 1.03 (0.9-1.15) Activated Partial Thromboplast Time 24.8 SEC (24.5-34.5) Lipase 44 U/L (12-53) Other Laboratory Tests 06/06/25 05:57 Brief Hx & Hospital Course: 75-year-old female with a history of hypertension hypercholesterolemia came in for abdominal pain underwent laparotomy with lysis of adhesions and appendectomy by surgeon Dr. Gannon. Subsequently patient developed atrial fibrillation seen by Cardiology placed on Eliquis she also complained of pain in the right upper extremity found to have DVT right upper extremity. Placed on Eliquis. Patient is on Levaquin and Flagyl IV after the surgery which will be continued for two more weeks in the residential. Patient has had a protracted course in the hospital. Being discharged to long term facility for IV antibiotics and physical therapy and rehab. Plan is agreeable with the patient and the at the bedside. Patient has a history of breast cancer status post left mastectomy Patient has developed generalized pruritic rash while in the hospital probably secondary to Zosyn which was discontinued and placed on Solu-Medrol and Benadryl with which she has recovered. Consults/Reason for consult Cardiology Surgeon Dr. Gannon Operations or Procedures Laparotomy with appendectomy Venous ultrasound right upper extremity Condition at Discharge: Fair Final Diagnosis/Problems List Paroxysmal atrial fibrillation with RVR, stage IIIa, newly diagnosed Rule out structural heart disease Generalized non-pruritic rash Right cephalic vein thrombus Hypertension Dyslipidemia Hypokalemia Status post exploratory laparotomy, lysis of adhesions and appendectomy History breast cancer Obesity Discharge Disposition: [facility] Facility Discharge Instruct/Medications Diet: Cardiac 2g Na,low cholest Activity: Light activity Follow Up/Referral: Follow up with the residential Medications: see list Miscellaneous Medications Simvastatin (Simvastatin), 1 TAB PO, (Reported) 45 (Time taken for discharge summary 45 minutes) Discharge Statement: "Patient was advised to return to the ER or call 911 if any headaches, dizziness, shortness of breath, chest pain, abdominal pain, bleeding, fevers, or worsening of medical condition. Patient was counseled about treatment plan, medications, possible side effects, patientverbalized understanding. All questions were answered to the best of my ability. This discharge took greater then 30 minutes in planning, reviewing documentation, counseling the patient, and discussing with other team members." ASSESSMENT ASSESSMENT Hospital Course Improved Assessment Paroxysmal atrial fibrillation with RVR, stage IIIa, newly diagnosed Rule out structural heart disease Generalized non-pruritic rash Right cephalic vein thrombus Hypertension Dyslipidemia Hypokalemia Status post exploratory laparotomy, lysis of adhesions and appendectomy History breast cancer Obesity Date of Service: Jun 07, 2025 Billing Provider: NORMA HICKMAN MD Common Visit Codes: 48454-YWX/OBS DISCH DAY >30min NORMA HICKMAN MD Jun 07, 2025 10:05
[2025-06-07] MEDS ORDERED: metroNIDAZOLE 500 MG TAB PO SCH (10:30)
[2025-06-07 13:00] VITALS: BP 159/76; PULSE 72; RESP 18; TEMP 98.3; O2SAT 97
[2025-06-07] MEDS ORDERED: APIX5TAB PO (14:55)
[2025-06-07] MEDS ORDERED: METO25TA5 PO (14:55)
== END 2025-06-07 16:10 | DRG 397 ==
LOC: ER 13:01 → EDBD 13:01 → OVERFLOW 16:04 → TELE-CENTR 22:00
PROVIDERS: ADMIT Family Medicine; ATTEND Family Medicine
PROC: 0WJG4ZZ Inspection of Peritoneal Cavity, Percutaneous Endoscopic Approach (ICD-10-PCS; 2025-05-27)
PROC: 0DTJ0ZZ Resection of Appendix, Open Approach (ICD-10-PCS; principal; 2025-05-27 18:06)
PROC: 0JH63XZ Insertion of Tunneled Vascular Access Device into Chest Subcutaneous Tissue and Fascia, Percutaneous Approach (ICD-10-PCS; 2025-06-04)
PROC: 02HV33Z Insertion of Infusion Device into Superior Vena Cava, Percutaneous Approach (ICD-10-PCS; 2025-06-04)
PROC: B5181ZA Fluoroscopy of Superior Vena Cava using Low Osmolar Contrast, Guidance (ICD-10-PCS; 2025-06-04)
PROC: B543ZZA Ultrasonography of Right Jugular Veins, Guidance (ICD-10-PCS; 2025-06-04)
DX: K35.80 Unspecified acute appendicitis (principal); I21.A1 Myocardial infarction type 2; I82.611 Acute embolism and thrombosis of superficial veins of right upper extremity; E87.20 Acidosis, unspecified; K56.50 Intestinal adhesions [bands], unspecified as to partial versus complete obstruction; K46.0 Unspecified abdominal hernia with obstruction, without gangrene; R73.9 Hyperglycemia, unspecified; E78.00 Pure hypercholesterolemia, unspecified; I48.0 Paroxysmal atrial fibrillation; I10 Essential (primary) hypertension; E66.9 Obesity, unspecified; E87.6 Hypokalemia; I51.9 Heart disease, unspecified; L27.0 Generalized skin eruption due to drugs and medicaments taken internally; T36.0X5A Adverse effect of penicillins, initial encounter; I35.8 Other nonrheumatic aortic valve disorders; M79.89 Other specified soft tissue disorders; I35.0 Nonrheumatic aortic (valve) stenosis; Z90.710 Acquired absence of both cervix and uterus; Z85.3 Personal history of malignant neoplasm of breast; Z90.12 Acquired absence of left breast and nipple; Z88.5 Allergy status to narcotic agent; Z88.1 Allergy status to other antibiotic agents; Z88.8 Allergy status to other drugs, medicaments and biological substances; Z87.11 Personal history of peptic ulcer disease; Z83.3 Family history of diabetes mellitus; Z82.49 Family history of ischemic heart disease and other diseases of the circulatory system; Z80.0 Family history of malignant neoplasm of digestive organs; Z79.01 Long term (current) use of anticoagulants; Y92.89 Other specified places as the place of occurrence of the external cause; Z53.31 Laparoscopic surgical procedure converted to open procedure; Z68.27 Body mass index [BMI] 27.0-27.9, adult
CPT/HCPCS: 36415; 36558; 71045; 74176; 80053; 80061; 83036; 83605; 83690; 83735; 83880; 84443; 84484; 85007; 85025; 85027; 85610; 85730; 86038; 86850; 86900; 86901; 87040; 87426; 93005; 93306; 93970; 96374; 96375; 97116; 97163; 97530; 99152; 99291; C1894; G0378; J0330; J1100; J1885; J2250; J2405; J2470; J2543; J3490